=== PATIENT | female | born 1980 | race Caucasian/White ===

== ENCOUNTER 2018-02-22 09:47 | Day surgery (SDC) | payer OTHER ==
[2018-02-19 09:20] VITALS: BMI 66.7
[~2018-02-22 09:47] MED LIST: LACTATED RINGERS 1,000 ML IV SCH
[2018-02-22 10:34] VITALS: RESP 18; TEMP 98.7
[2018-02-22] MEDS ORDERED: LIDOCAINE 1% 20 ML VIAL (10MG/ML) FOR IV START INTRADERMA ONE (10:41)
[2018-02-22] MEDS ORDERED: PROPOFOL 10 MG/ML 20 ML VIAL IV ONE (11:41)
[2018-02-22] MEDS ORDERED: fentaNYL (PF) 50 MCG/ML 2 ML AMP ONE (11:41)
[2018-02-22] MEDS ORDERED: LIDOCAINE 1% INJ 10MG/ML (20 ML MDV) ONE (11:41)
--- NOTE | 2018-02-22 12:13 | P.PCN ---
Date of Procedure: 02/22/18 Procedure(s) Performed: Procedures: 1. Esophagogastroduodenoscopy and biopsy. 2. Colonoscopy and biopsy. Preoperative diagnosis: Chronic diarrhea. Postoperative diagnosis: 1. Mild gastritis. 2. Normal colon and terminal ileum. 3. Biopsies obtained from the duodenum, antrum, esophagus, terminal ileum and right colon. Preparation: HalfLytely prep. Sedation: Was provided by anesthesia. Brief clinical history: The patient is a 38-year-old female who is scheduled for this evaluation because of chronic diarrhea of around 2 months duration. Intermittent rectal bleeding. This evaluation is to assess for inflammatory bowel disease, celiac disease or other pathology. Procedure: With the patient on her left lateral decubitus position and after informed consent and adequate sedation, I passed the Olympus-GIF 10/07/1989 video upper endoscope through the cricopharyngeus down the esophagus. GE junction was around 39-40 cm from the incisors. No definite hiatal hernia or any obvious esophagitis or complicated reflux disease. The endoscope was then passed into the stomach which was insufflated with air and inspected in detail including the retroflex view in the cardia. There was some mottling and erythema in the antrum but no ulcers or erosions. Pyloric channel, duodenal bulb, post bulbar area and descending duodenum appeared within normal limits. Because of her diarrhea, I obtained biopsies from the duodenum in addition to biopsies from the antrum and esophagus then the endoscope was withdrawn and I proceeded to perform the colonoscopy. Perianal area did not show any fissures or fistulas. There were no masses felt on digital rectal examination. The Olympus CFH 190L video colonoscope was then inserted in the rectum in the usual fashion and advanced to the cecum. I intubated the ileocecal valve and examined the terminal ileum. Terminal ileum and colon appeared healthy with no edema, erythema, friability, ulceration, exudation or spontaneous bleeding. No polyps or tumors were seen or any obvious diverticular disease or other pathology. I obtained biopsies from the terminal ileum and right colon. The endoscope was then retroflexed in the rectum before it was withdrawn. Low-grade internal hemorrhoids were noted with no obvious bleeding. The patient tolerated the procedure well. Plan: The patient was reassured. Will await biopsy results and make further plans based on her course and biopsy results.
[2018-02-22 12:25] VITALS: BP 108/62; PULSE 63
== END 2018-02-22 12:48 | disposition home or self-care (01) ==
LOC: ORWHC2ENDO 09:47
DX: K29.70 Gastritis, unspecified, without bleeding (principal); K64.8 Other hemorrhoids; Z88.5 Allergy status to narcotic agent; F17.210 Nicotine dependence, cigarettes, uncomplicated
CPT/HCPCS: 81025; 88305; 45380; 43239; J2001; J3010; J2704

== ENCOUNTER → 2018-07-15 | Outpatient (CLI) | payer OTHER ==
--- NOTE | 2018-07-15 15:23 | US ---
EXAMINATION TYPE: Transabdominal DATE OF EXAM: 07/15/2018 3:07 PM COMPARISON: US June 06, 2018 CLINICAL HISTORY: Z36 confirm dates. EXAM PERFORMED: Transabdominal (TA) EXAM MEASUREMENTS: GESTATIONAL AGE / DATING Physician Established: Not yet established Dates by LMP: 04/29/2018 (11 weeks/0 days) EDC: 02/03/2019 Dates by First Scan: No IUP seen on prior Dates by Current Scan for: (11 weeks/3 days) EDC: 01/31/2019 MATERNAL ANATOMY Uterus: 14.3 x 6.8 x 9.3 cm Right Ovary: 3.3 x 4.2 x 1.8 cm Left Ovary: 3.4 x 2.2 x 2.2 cm Post CDS / Adnexa: wnl Presence of free fluid: none GESTATION / SURVEY CRL: 4.6 cm (11 weeks/3 days) Yolk Sac (normal less than 6mm): not seen Heart Rate: 155 bpm Rhythm: normal IUP: Viable IUP Nuchal Translucency 10-14wks (normal less than 3mm): 1.2 mm Date of LMP: 04/29/2018 Single live intrauterine gestation is now present as gestational sac and pole are seen. Yolk sa c is not identified. No free fluid in pelvic cul-de-sac. Both ovaries are seen. No suspicious extra ovarian adnexal masses are noted. IMPRESSION: Single live intrauterine gestation is now confirmed, mean crown-rump length is 4.6 cm corresponding t o 11 week 3 day old fetus.
== END | disposition home or self-care (01) ==
LOC: RADUSWWP 14:46
PROVIDERS: ATTEND Obstetrics & Gynecology
DX: Z36.9 Encounter for antenatal screening, unspecified (principal); Z3A.11 11 weeks gestation of pregnancy
CPT/HCPCS: 76801; 76813

== ENCOUNTER 2018-10-14 23:20 | Outpatient (CLI) | payer OTHER ==
[2018-10-14 23:54] VITALS: BP 133/74; PULSE 86; RESP 16; TEMP 97.1
[2018-10-15 00:05] LABS: Amorphous Sediment,Urine Rare /hpf; Appearance,Urine Turbid (Clear); Bilirubin,Urine Negative (Negative); Blood,Urine Negative (Negative); Color,Urine Yellow; Glucose,Urine (UA) Negative (Negative); Ketones,Urine Negative (Negative); Leukocyte Esterase,Urine Trace (Negative); Mucus,Urine Rare /hpf; Nitrite,Urine Negative (Negative); Protein,Urine Trace (Negative); RBC,Urine 6 /hpf (0-5); Specific Gravity,Urine 1.022 (1.001-1.035); Squamous Epithelial Cell,Urine 3 /hpf (0-4); Urobilinogen,Urine <2.0 mg/dL (<2.0)
--- NOTE | 2018-10-15 06:15 | P.MSEPDOC ---
Presenting Problems - Arrival Data Date of Arrival on Unit: 10/14/18 Time of Arrival on Unit: 23:20 Mode of Transport: Ambulatory - Complaint OB-Reason for Admission/Chief Complaint: Pain Comment: rates cramping pain a 1. Medical History - Information : 5 Para: 1 Term: 1 : 0 Abortions: Spontaneous or Elective: 3 Number of Living Children: 1 - Gestational Age Gestational Age by KINGSTON (wks/days): 24 Weeks and 4 Days Review of Systems - Review of Systems Constitutional: No problems Breast: No problems ENT: No problems Cardiovascular: No problems Respiratory: No problems Gastrointestinal: No problems Genitourinary: No problems Musculoskeletal: No problems Neurological: No problems Skin: No problems Vital Signs - Temperature Temperature: 97.1 F Temperature Source: Temporal Artery Scan - Pulse Right Sitting Brachial Pulse Rate: 86 Pulse Assessment Method: Automatic Cuff - Respirations Respiratory Rate: 16 Oxygen Delivery Method: Room Air O2 Sat by Pulse Oximetry: 99 - Blood Pressure Right Arm Sitting Blood Pressure: 133/74 Blood Pressure Mean: 93 Blood Pressure Source: Automatic Cuff Medical Screen Scoring (Pre) - Cervical Exam Dilation: 0 cm = 0 Membranes: Intact - Uterine Contractions Frequency: N/A Duration: N/A Intensity: N/A - Maternal Vital Signs Maternal Temperature: N/A Maternal Blood Pressure: N/A Signs of Preeclampsia: N/A Maternal Respirations: N/A - Maternal Trauma Maternal Trauma: N/A - Assessment - Baby A Baseline FHR: 155 Heart Rate - NICHD Category: Category I (Normal) = 0 - Total Score - Baby A Total Score - Baby A: 0 - Total Score - Baby B Total Score - Baby B: 0 - Total Score - Baby C Total Score - Baby C: 0 - Level of Risk - Baby A Level of Risk - Baby A: Low (0-5) - Level of Risk - Baby B Level of Risk - Baby B: Low (0-5) - Level of Risk - Baby C Level of Risk - Baby C: Low (0-5) Physician Notification (Pre) - Physician Notified Physician Notified Date: 10/14/18 Physician Notified Time: 23:44 Physician/Practitioner Notifed:: Dr Jones New Order Received: Yes (send ua and check cervix) Disposition - Disposition Discharge Date: 10/15/18 Discharge Time: 00:20 I agree with the RN Medical Screening Exam: Yes Risk & Benefit of care provided described in d/c instruction: Yes Diagnosis: PELVIC AND PERINEAL PAIN
== END 2018-10-15 00:20 | disposition home or self-care (01) ==
LOC: FBPOP 23:20
PROVIDERS: ATTEND Obstetrics & Gynecology
DX: O99.89 Other specified diseases and conditions complicating pregnancy, childbirth and the puerperium (principal); R10.2 Pelvic and perineal pain; Z3A.24 24 weeks gestation of pregnancy
CPT/HCPCS: 81001; G0463; 99213

== ENCOUNTER 2018-11-23 10:54 | Outpatient (CLI) | payer OTHER ==
[2018-11-23 11:49] VITALS: PULSE 102; RESP 17; TEMP 98.4
[2018-11-23 11:52] LABS: Appearance,Urine Clear (Clear); Bilirubin,Urine Negative (Negative); Blood,Urine Negative (Negative); Color,Urine Light Yellow; Glucose,Urine (UA) Trace (Negative); Ketones,Urine Negative (Negative); Leukocyte Esterase,Urine Negative (Negative); Nitrite,Urine Negative (Negative); PH, Urine 7.5 (5.0-8.0); Protein,Urine Negative (Negative); Specific Gravity,Urine 1.007 (1.001-1.035); Urobilinogen,Urine <2.0 mg/dL (<2.0)
[2018-11-23 12:07] LABS: Basophils % (A) 0 %; Eosinophils # (A) 0.1 k/uL (0-0.7); Eosinophils % (A) 1 %; HCT 36.9 % (34.0-46.0); HGB 12.2 gm/dL (11.4-16.0); Lymphocytes # (A) 1.7 k/uL (1.0-4.8); Lymphocytes % (A) 14 %; MCH 29.3 pg (25.0-35.0); MCV 88.7 fL (80.0-100.0); Mean Platelet Volume 7.5; Monocytes # (A) 0.5 k/uL (0-1.0); Monocytes % (A) 4 %; Neutrophils % (A) 80 %; Platelet Count 251 k/uL (150-450); RBC 4.16 m/uL (3.80-5.40); RDW 13.7 % (11.5-15.5); WBC 12.5 k/uL (3.8-10.6)
[2018-11-23 12:16] LABS: ALT 12 U/L (9-52); AST 17 U/L (14-36); African American GFR (CKD) >90 (>60 ml/min/1.73 sqM); Blood Urea Nitrogen 7 mg/dL (7-17); LDH 287 U/L (313-618); Uric Acid 4.7 mg/dL (3.7-7.4)
[2018-11-23 14:09] VITALS: BP 111/60
--- NOTE | 2018-11-24 23:06 | P.MSEPDOC ---
Presenting Problems - Arrival Data Date of Arrival on Unit: 11/23/18 Time of Arrival on Unit: 10:54 Mode of Transport: Ambulatory - Complaint OB-Reason for Admission/Chief Complaint: Decreased Movement, Pain Comment: pt here with c/o of right abd pain since last night and decreased . movement since abd pain started, pt reports constant tightening in her abd but denies. contractions/cramping/lof/vb, abd soft and non tender to touch, able to palpate parts in right upper abd where pt reports pain, pt states she has had a headache for the last 2 days but denies issues with bps Medical History - Information : 4 Para: 1 Term: 1 : 0 Abortions: Spontaneous or Elective: 2 Number of Living Children: 1 - Gestational Age Gestational Age by KINGSTON (wks/days): 29 Weeks and 5 Days Review of Systems - Review of Systems Constitutional: No problems Breast: No problems ENT: No problems Cardiovascular: No problems Respiratory: No problems Gastrointestinal: No problems Genitourinary: No problems Musculoskeletal: No problems Neurological: No problems Skin: No problems Vital Signs - Temperature Temperature: 98.4 F Temperature Source: Oral - Pulse Right Brachial Pulse Rate: 102 Pulse Assessment Method: Automatic Cuff - Respirations Respiratory Rate: 17 Oxygen Delivery Method: Room Air O2 Sat by Pulse Oximetry: 98 - Blood Pressure Right Arm Blood Pressure: 111/60 Blood Pressure Mean: 77 Blood Pressure Source: Automatic Cuff Medical Screen Scoring (Pre) - Cervical Exam Dilation: Exam Deferred Effacement: Exam Deferred Membranes: Intact - Uterine Contractions Frequency: N/A Duration: N/A Intensity: N/A - Maternal Vital Signs Maternal Temperature: N/A Maternal Blood Pressure: N/A Signs of Preeclampsia: N/A Maternal Respirations: N/A - Maternal Trauma Maternal Trauma: N/A - Assessment - Baby A Baseline FHR: 150 Heart Rate - NICHD Category: Category I (Normal) = 0 NST: Reactive Position: N/A Station: N/A - Total Score - Baby A Total Score - Baby A: 0 - Total Score - Baby B Total Score - Baby B: 0 - Total Score - Baby C Total Score - Baby C: 0 - Level of Risk - Baby A Level of Risk - Baby A: Low (0-5) - Level of Risk - Baby B Level of Risk - Baby B: Low (0-5) - Level of Risk - Baby C Level of Risk - Baby C: Low (0-5) - Pain Assessment Pain Location and Character: Right, Abdomen Pain Scale Used: Numeric (1 - 10) Pain Intensity: 5 Pain Management Goal: 2 Pain Description: *Acute, Sharp, Tightness Pain Radiation Location: none Pain Frequency: Occasional Pain Duration: 14 Pain Duration Units: Hours Pain Behavior: None Exhibited Pain Aggravating Factors: Position Physician Notification (Pre) - Physician Notified Physician Notified Date: 11/23/18 Physician Notified Time: 11:29 Physician/Practitioner Notifed:: Dr Jones Spoke With: Dr Karen Morris Order Received: Yes - Notification Comment Comment: order given to cont monitoring bps and to send lab work to r/o pre eclampsia Medical Screen Scoring (Post) - Cervical Exam Dilation: Exam Deferred Effacement: Exam Deferred Membranes: Intact - Uterine Contractions Frequency: N/A Duration: N/A Intensity: N/A - Maternal Vital Signs Maternal Temperature: N/A Maternal Blood Pressure: N/A Signs of Preeclampsia: N/A Maternal Respirations: N/A - Maternal Trauma Maternal Trauma: N/A - Assessment - Baby A Heart Rate: 150 Heart Rate - NICHD Category: Category I (Normal) = 0 NST: Reactive Position: N/A Station: N/A - Total Score Total Score - Baby A: 0 Total Score - Baby B: 0 Total Score - Baby C: 0 - Post Treatment Level of Risk Post Treatment Level of Risk - Baby A: Low (0-5) Post Treatment Level of Risk - Baby B: N/A Post Treatment Level of Risk - Baby C: N/A Physician Notification (Post) - Physician Notified Physician Notified Date: 11/23/18 Physician Notified Time: 12:35 Physician/Practitioner Notified:: Dr Jones Spoke With: Dr Jones New Order Received: Yes (dc home) Disposition - Disposition OB Disposition: Discharge to home, Written follow up instructions reviewed Discharge Date: 11/23/18 Discharge Time: 12:45 I agree with the RN Medical Screening Exam: Yes Risk & Benefit of care provided described in d/c instruction: Yes Diagnosis: FALSE LABOR BEFORE 37 COMPLETED WEEKS OF GEST, THIRD TRI
== END 2018-11-23 12:45 | disposition home or self-care (01) ==
LOC: FBPOP 10:54
PROVIDERS: ATTEND Obstetrics & Gynecology
DX: O47.03 False labor before 37 completed weeks of gestation, third trimester (principal); Z3A.29 29 weeks gestation of pregnancy
CPT/HCPCS: 59025; 82570; 84156; 82565; 83615; 84450; 84460; 84520; 84550; 85025; 81003; G0463; 99213

== ENCOUNTER 2018-12-27 22:55 | Outpatient (CLI) | payer OTHER ==
[2018-12-28 00:16] VITALS: BP 116/65; PULSE 85; RESP 16; TEMP 99.1
--- NOTE | 2018-12-29 21:21 | P.MSEPDOC ---
Presenting Problems - Arrival Data Date of Arrival on Unit: 12/28/18 Time of Arrival on Unit: 22:55 Mode of Transport: Ambulatory - Complaint OB-Reason for Admission/Chief Complaint: Rule Out SROM, Decreased Movement, Elevated Blood Pressure Comment: pt presents to triage with complaints of not feeling baby move the last few. hours. states attempted kick counts for 2 hours without feeling any move ment. States is. high risk due to AMA and 2 ves umbilical cord. upon further question pt states she had a. gush of fluid 24 hours ago and worries her water may be broke. disccused plan for nst. and amnisure test. Pt states she gets bi weekly nsts and weekly Biophysical profiles Medical History - Information : 5 Para: 1 Term: 1 : 0 Abortions: Spontaneous or Elective: 3 Number of Living Children: 1 - Gestational Age Gestational Age by KINGSTON (wks/days): 34 Weeks and 5 Days - History Comment: pt states prior delivery was vaginal Induced for Preeclampsia and baby had triple nuchal cord. First 3 pregnancies were miscarriages. Progesterone was used for last . pt on Baby ASA at this time Review of Systems - Review of Systems Constitutional: No problems Breast: No problems ENT: No problems Cardiovascular: No problems Respiratory: No problems Gastrointestinal: No problems Genitourinary: No problems Musculoskeletal: No problems Neurological: No problems Skin: No problems Vital Signs - Temperature Temperature: 99.1 F Temperature Source: Oral - Pulse Right Pulse Rate: 85 Pulse Assessment Method: Automatic Cuff - Respirations Respiratory Rate: 16 Oxygen Delivery Method: Room Air O2 Sat by Pulse Oximetry: 98 - Blood Pressure Right Arm Blood Pressure: 116/65 Blood Pressure Mean: 82 Blood Pressure Source: Automatic Cuff Medical Screen Scoring (Pre) - Cervical Exam Dilation: Exam Deferred Effacement: Exam Deferred - Uterine Contractions Frequency: N/A Duration: N/A Intensity: N/A - Maternal Vital Signs Maternal Temperature: N/A Maternal Blood Pressure: N/A Signs of Preeclampsia: N/A Maternal Respirations: N/A - Maternal Trauma Maternal Trauma: N/A - Assessment - Baby A Baseline FHR: 145 Heart Rate - NICHD Category: Category I (Normal) = 0 NST: Reactive Position: N/A Station: N/A - Total Score - Baby A Total Score - Baby A: 0 - Total Score - Baby B Total Score - Baby B: 0 - Total Score - Baby C Total Score - Baby C: 0 - Level of Risk - Baby A Level of Risk - Baby A: Low (0-5) - Level of Risk - Baby B Level of Risk - Baby B: Low (0-5) - Level of Risk - Baby C Level of Risk - Baby C: Low (0-5) Physician Notification (Pre) - Physician Notified Physician Notified Date: 12/28/18 Physician Notified Time: 23:44 Physician/Practitioner Notifed:: Dr Garcia Spoke With: Dr Garcia New Order Received: Yes - Notification Comment Comment: Dr. Garcia updated with pts reason for visit of decreased movement and pt. concern her water may have broke. notified NST reactive, Cat 1 fht, Maternal vitals wnl,. pt now feeling movement. order to discharge pt and have pt keep this week's appts. for NSTs and ultrasounds with Dr Jones. pt is to return if further problems with kick. counts or any other concerns Disposition - Disposition OB Disposition: Discharge to home Discharge Date: 12/27/18 Discharge Time: 23:55 I agree with the RN Medical Screening Exam: Yes Risk & Benefit of care provided described in d/c instruction: Yes Diagnosis: DECREASED MOVEMENTS, THIRD TRIMESTER, UNSP
== END 2018-12-27 23:55 | disposition home or self-care (01) ==
LOC: FBPOP 22:55
PROVIDERS: ATTEND Obstetrics & Gynecology
DX: O36.8130 Decreased fetal movements, third trimester, not applicable or unspecified (principal); Z3A.34 34 weeks gestation of pregnancy
CPT/HCPCS: 59025; 84112; G0463; 99213

== ENCOUNTER 2019-01-09 20:15 | Outpatient (CLI) | payer OTHER ==
[2019-01-09 20:39] LABS: Appearance,Urine Clear (Clear); Bacteria,Urine Rare /hpf; Bilirubin,Urine Negative (Negative); Blood,Urine Trace (Negative); Color,Urine Yellow; Glucose,Urine (UA) Negative (Negative); Ketones,Urine Trace (Negative); Leukocyte Esterase,Urine Trace (Negative); Mucus,Urine Few /hpf; Nitrite,Urine Negative (Negative); PH, Urine 6.5 (5.0-8.0); Protein,Urine 1+ (Negative); RBC,Urine 6 /hpf (0-5); Specific Gravity,Urine 1.029 (1.001-1.035); Squamous Epithelial Cell,Urine 4 /hpf (0-4); WBC,Urine 3 /hpf (0-5)
[2019-01-09 20:58] VITALS: BP 137/88; PULSE 101; RESP 16; TEMP 97
--- NOTE | 2019-02-10 05:27 | P.MSEPDOC ---
Presenting Problems - Arrival Data Date of Arrival on Unit: 01/09/19 Time of Arrival on Unit: 20:15 Mode of Transport: Ambulatory - Complaint OB-Reason for Admission/Chief Complaint: Pain Medical History - Information : 5 Para: 1 Term: 1 : 0 Abortions: Spontaneous or Elective: 3 Number of Living Children: 1 - Gestational Age Gestational Age by [place] (wks/days): 36 Weeks and 3 Days - History Comment: 2 Vessel cord. Patient presents with suprapubic pain and pressure that almost made her pass out in the grocery store. Review of Systems - Review of Systems Constitutional: No problems Breast: No problems ENT: No problems Cardiovascular: No problems Respiratory: No problems Gastrointestinal: No problems Genitourinary: No problems Musculoskeletal: No problems Neurological: No problems Skin: No problems Vital Signs - Temperature Temperature: 97.0 F Temperature Source: Temporal Artery Scan - Pulse Pulse Oximetery Pulse Rate: 101 Pulse Assessment Method: Pulse Oximetry - Respirations Respiratory Rate: 16 Oxygen Delivery Method: Room Air O2 Sat by Pulse Oximetry: 98 - Blood Pressure Sitting Blood Pressure: 137/88 Blood Pressure Mean: 104 Blood Pressure Source: Automatic Cuff Medical Screen Scoring (Pre) - Cervical Exam Dilation: 1-3 cm = 1 Effacement: More than 50% = 2 Membranes: Intact - Uterine Contractions Frequency: N/A Duration: N/A Intensity: N/A - Maternal Vital Signs Maternal Temperature: N/A Maternal Blood Pressure: N/A Signs of Preeclampsia: N/A Maternal Respirations: N/A - Maternal Trauma Maternal Trauma: N/A - Assessment - Baby A Baseline FHR: 145 Heart Rate - NICHD Category: Category I (Normal) = 0 NST: Reactive Position: N/A Station: N/A - Total Score - Baby A Total Score - Baby A: 3 - Total Score - Baby B Total Score - Baby B: 3 - Total Score - Baby C Total Score - Baby C: 3 - Level of Risk - Baby A Level of Risk - Baby A: Low (0-5) - Level of Risk - Baby B Level of Risk - Baby B: Low (0-5) - Level of Risk - Baby C Level of Risk - Baby C: Low (0-5) Physician Notification (Pre) - Physician Notified Physician Notified Date: 01/09/19 Physician Notified Time: 20:35 New Order Received: Yes - Notification Comment Comment: Encourage patient to take a warm bath, take tylenol over the counter as directed for pain, and use a heating pad for pain. Call physician with UA results if abnormal. 2047: UA results reported, physician states to encourage patient to increase her water intake at this time and keep regularly scheduled appt with Dr. Jones for 01/11. Disposition - Disposition OB Disposition: Discharge to home, Written follow up instructions reviewed Discharge Date: 01/09/19 Discharge Time: 20:52 I agree with the RN Medical Screening Exam: Yes Risk & Benefit of care provided described in d/c instruction: Yes Diagnosis: FALSE LABOR BEFORE 37 COMPLETED WEEKS OF GEST, THIRD TRI
== END 2019-01-09 20:50 | disposition home or self-care (01) ==
LOC: FBPOP 20:15
PROVIDERS: ATTEND Obstetrics & Gynecology
DX: O47.03 False labor before 37 completed weeks of gestation, third trimester (principal); Z3A.36 36 weeks gestation of pregnancy
CPT/HCPCS: 59025; 81001; G0463; 99213

== ENCOUNTER 2019-01-14 19:54 | Outpatient (CLI) | payer OTHER ==
[2019-01-14 20:45] LABS: Appearance,Urine Cloudy (Clear); Bacteria,Urine Rare /hpf; Bilirubin,Urine Negative (Negative); Blood,Urine Negative (Negative); Color,Urine Yellow; Glucose,Urine (UA) Negative (Negative); Ketones,Urine Negative (Negative); Leukocyte Esterase,Urine Small (Negative); Mucus,Urine Occasional /hpf; Nitrite,Urine Negative (Negative); PH, Urine 6.5 (5.0-8.0); Protein,Urine 1+ (Negative); RBC,Urine 3 /hpf (0-5); Specific Gravity,Urine 1.023 (1.001-1.035); Squamous Epithelial Cell,Urine 16 /hpf (0-4); WBC,Urine 3 /hpf (0-5)
[2019-01-14] MEDS ORDERED: LACTATED RINGERS 1,000 ML IV SCH (21:00)
[2019-01-14 21:09] LABS: Basophils % (A) 0 %; Eosinophils # (A) 0.1 k/uL (0-0.7); Eosinophils % (A) 1 %; HCT 37.5 % (34.0-46.0); HGB 13.1 gm/dL (11.4-16.0); Lymphocytes # (A) 1.7 k/uL (1.0-4.8); Lymphocytes % (A) 16 %; MCHC 34.8 g/dL (31.0-37.0); MCV 89.1 fL (80.0-100.0); Mean Platelet Volume 7.4; Monocytes # (A) 0.4 k/uL (0-1.0); Monocytes % (A) 4 %; Neutrophils # (A) 8.3 k/uL (1.3-7.7); Neutrophils % (A) 77 %; Platelet Count 220 k/uL (150-450); RBC 4.21 m/uL (3.80-5.40); RDW 13.8 % (11.5-15.5); WBC 10.7 k/uL (3.8-10.6)
[2019-01-14 21:16] LABS: ALT 19 U/L (9-52); AST 18 U/L (14-36); African American GFR (CKD) >90 (>60 ml/min/1.73 sqM); Albumin 3.4 g/dL (3.5-5.0); Alkaline Phosphatase 120 U/L (38-126); Anion Gap 10 mmol/L; Blood Urea Nitrogen 10 mg/dL (7-17); Carbon Dioxide 21 mmol/L (22-30); Chloride 105 mmol/L (98-107); Glucose 111 mg/dL (74-99); LDH 328 U/L (313-618); Potassium 3.7 mmol/L (3.5-5.1); Sodium 136 mmol/L (137-145); Total Bilirubin 0.2 mg/dL (0.2-1.3); Total Protein 6.1 g/dL (6.3-8.2); Uric Acid 5.6 mg/dL (3.7-7.4)
[2019-01-15 00:39] VITALS: RESP 18; TEMP 97.2
[2019-01-15 00:46] VITALS: BP 138/77; PULSE 64
--- NOTE | 2019-01-16 07:57 | P.MSEPDOC ---
Presenting Problems - Arrival Data Date of Arrival on Unit: 01/14/19 Time of Arrival on Unit: 19:54 Mode of Transport: Ambulatory - Complaint OB-Reason for Admission/Chief Complaint: Decreased Movement, Headache, Visual Disturbances, Pain Comment: pt presents to triage for cramping and pelvic pressure, decreased movement, headache, n/v, and blurred vision Medical History - Information : 5 Para: 1 Term: 1 : 0 Abortions: Spontaneous or Elective: 3 Number of Living Children: 1 - Gestational Age Gestational Age by KINGSTON (wks/days): 37 Weeks and 2 Days Review of Systems - Review of Systems Constitutional: No problems Breast: No problems ENT: No problems Cardiovascular: No problems Respiratory: No problems Gastrointestinal: No problems Genitourinary: No problems Musculoskeletal: No problems Neurological: No problems Skin: No problems Vital Signs - Temperature Temperature: 97.2 F Temperature Source: Temporal Artery Scan - Pulse Right Brachial Pulse Rate: 64 Pulse Assessment Method: Automatic Cuff - Respirations Respiratory Rate: 18 Oxygen Delivery Method: Room Air - Blood Pressure Right Arm Blood Pressure: 138/77 Blood Pressure Mean: 97 Blood Pressure Source: Automatic Cuff Medical Screen Scoring (Pre) - Cervical Exam Dilation: 1-3 cm = 1 Effacement: More than 50% = 2 Membranes: Intact - Uterine Contractions Frequency: N/A Duration: N/A Intensity: N/A - Maternal Vital Signs Maternal Temperature: N/A Maternal Blood Pressure: N/A Signs of Preeclampsia: Headache = 1, Nausea/Vomiting = 1, Visual Disturbance = 1 Maternal Respirations: N/A - Maternal Trauma Maternal Trauma: N/A - Assessment - Baby A Baseline FHR: 145 Heart Rate - NICHD Category: Category I (Normal) = 0 NST: Non-reactive = 3 Position: N/A Station: N/A - Total Score - Baby A Total Score - Baby A: 9 - Total Score - Baby B Total Score - Baby B: 6 - Total Score - Baby C Total Score - Baby C: 6 - Level of Risk - Baby A Level of Risk - Baby A: Medium (6-9) - Level of Risk - Baby B Level of Risk - Baby B: Medium (6-9) - Level of Risk - Baby C Level of Risk - Baby C: Medium (6-9) Physician Notification (Pre) - Physician Notified Physician Notified Date: 01/14/19 Physician Notified Time: 20:30 New Order Received: Yes - Notification Comment Comment: obtain UA, blood work, will give results when back Medical Screen Scoring (Post) - Cervical Exam Dilation: Exam Deferred Effacement: Exam Deferred Membranes: Intact - Uterine Contractions Frequency: N/A Duration: > 40 seconds = 2 Intensity: N/A - Maternal Vital Signs Maternal Temperature: N/A Maternal Blood Pressure: N/A Signs of Preeclampsia: Headache = 1 Maternal Respirations: N/A - Pain Assessment Pain Location and Character: Head Pain Scale Used: Numeric (1 - 10) Pain Intensity: 5 Pain Description: *Acute, Aching Pain Radiation Location: none Pain Frequency: Constant Pain Duration: 24 Pain Duration Units: Hours Pain Behavior: Vocalization - Maternal Trauma Maternal Trauma: N/A - Assessment - Baby A Heart Rate: 130 Heart Rate - NICHD Category: Category I (Normal) = 0 NST: Reactive Position: N/A Station: N/A - Total Score Total Score - Baby A: 3 Total Score - Baby B: 3 Total Score - Baby C: 3 - Post Treatment Level of Risk Post Treatment Level of Risk - Baby A: Low (0-5) Post Treatment Level of Risk - Baby B: Low (0-5) Post Treatment Level of Risk - Baby C: Low (0-5) Physician Notification (Post) - Physician Notified Physician Notified Date: 01/14/19 Physician Notified Time: 22:20 Physician/Practitioner Notified:: arianna Spoke With: arianna New Order Received: Yes - Notification Comment Comment: labs were done, iv fluids given, accoustic stimulation done, nausea gone, eating crackers, nst reactive, orders to discharge pt home, follow up at next appt, pt has 2 vessel cord, gets nst's 2 times a week, reviewed kick counts and preeclampsia symptoms and when to come in for reevaluation, Disposition - Disposition OB Disposition: Discharge to home, Written follow up instructions reviewed Discharge Date: 01/14/19 Discharge Time: 22:30 I agree with the RN Medical Screening Exam: Yes Risk & Benefit of care provided described in d/c instruction: Yes Diagnosis: RELATED CONDITIONS, UNSPECIFIED, THIRD TRIMESTER
== END 2019-01-14 22:30 | disposition home or self-care (01) ==
LOC: FBPOP 19:54
PROVIDERS: ATTEND Obstetrics & Gynecology
DX: O26.93 Pregnancy related conditions, unspecified, third trimester (principal); Z3A.37 37 weeks gestation of pregnancy
CPT/HCPCS: 59025; 96360; 82570; 80053; 84156; 83615; 84550; 85025; 81001; G0463; 99215

== ENCOUNTER 2019-01-20 10:43 | Inpatient (IN) | payer OTHER ==
[2019-01-20] MEDS ORDERED: OXYTOCIN 10 UNIT/ML 1 ML VIAL IM PRN (10:59)
[2019-01-20] MEDS ORDERED: CARBOPROST TROMETHAMINE 250 MCG/ML 1 ML AMP IM PRN (10:59)
[2019-01-20] MEDS ORDERED: LIDOCAINE 0.5% (PF) 5 MG/ML (50 ML SDV) SQ PRN (10:59)
[2019-01-20] MEDS ORDERED: TERBUTALINE 1 MG/ML VIAL SQ PRN (10:59)
[2019-01-20] MEDS ORDERED: METHYLERGONOVINE 0.2 MG/ML 1 ML AMP IM PRN (10:59)
[2019-01-20] MEDS ORDERED: OXYTOCIN 30 UNITS/500 ML NS 30 UNIT in SALINE 1 500ML.BAG IV SCH (11:00)
[2019-01-20 11:05] VITALS: BMI 33.6
[2019-01-20] MEDS: LACTATED RINGERS 1,000 ML IV SCH ×3 (11:12→15:03)
[2019-01-20 11:37] LABS: Basophils % (A) 0 %; Eosinophils # (A) 0.1 k/uL (0-0.7); Eosinophils % (A) 1 %; HCT 39.6 % (34.0-46.0); HGB 13.4 gm/dL (11.4-16.0); Lymphocytes # (A) 1.7 k/uL (1.0-4.8); Lymphocytes % (A) 17 %; MCH 30.5 pg (25.0-35.0); MCHC 33.8 g/dL (31.0-37.0); MCV 90.3 fL (80.0-100.0); Mean Platelet Volume 7.8; Monocytes # (A) 0.4 k/uL (0-1.0); Monocytes % (A) 4 %; Neutrophils % (A) 78 %; Platelet Count 251 k/uL (150-450); RBC 4.38 m/uL (3.80-5.40); WBC 10.3 k/uL (3.8-10.6)
--- NOTE | 2019-01-20 12:08 | P.HPOB ---
History of Present Illness H&P Date: 01/20/19 Chief Complaint: Variable decelerations on surveillance NST, known 2 vessel cord This patient is a pleasant 38-year-old 5 para 1 female estimated date of confinement 02/03/2019 estimated gestational age 38 weeks who presented to my office this morning for routine surveillance nonstress test secondary to known 2 vessel cord. The office patient had reactive heart tones however had several moderate variable decelerations. I discuss these findings with the roshni ojeda and at this point with a known two-vessel cord I recommended proceed with delivery based on concerning nonstress test. Patient is agreeable to this and proceed with delivery at this time. Patient's care is complicated by two-vessel cord for which she was referred to maternal- medicine. Patient's had a normal cardiac echo. And normal anatomy. Patient does have a history of gestational hypertension and has been on baby aspirin however blood pressures have remained normal this . Patient also is over the age of 33 and had normal genetic testing 46 XY by maternity T 21. Review of Systems Genitourinary: Reports Menstruation: Reports amenorrhea Past Medical History Past Medical History: No Reported History Additional Past Medical History / Comment(s): migraines History of Any Multi-Drug Resistant Organisms: None Reported Past Surgical History: Appendectomy, Cholecystectomy Past Anesthesia/Blood Transfusion Reactions: No Reported Reaction Past Psychological History: Anxiety, Depression Smoking Status: Former smoker Past Alcohol Use History: None Reported Additional Past Alcohol Use History / Comment(s): 1/2 ppd for 10 years. Past Drug Use History: None Reported - Past Family History Sister(s) Family Medical History: Cancer Medications and Allergies Home Medications Medication Instructions Recorded Confirmed Type Aspirin 81 mg PO DAILY 10/14/18 01/20/19 History Pnv No.95/Ferrous Fum/Folic AC 1 tab PO DAILY 10/14/18 01/20/19 History [ Multivitamin Tablet] Allergies Allergy/AdvReac Type Severity Reaction Status Date / Time hydromorphone [From Dilaudid] Allergy Swelling Verified 01/20/19 10:56 Exam Vital Signs Temp Pulse Resp BP Pulse Ox 01/20/19 11:01 97.2 F L 87 14 127/79 96 Intake and Output 01/19/19 01/20/19 01/20/19 22:59 06:59 14:59 Other: Weight 103.419 kg - OBG Physical Exam Abdomen: bowel sounds normal, no diffuse tenderness, no bruit present, no guarding noted, no hepatomegaly, no splenomegaly, no mass Vulva: both: normal Vagina: normal moisture, no discharge Cervix: no lesion (Cervix is 3-4 cm dilated 50% effaced -2 station.), no discharge Results blood work shows she is A+, rubella immune, RPR nonreactive, hepatitis B negative, Glucola was abnormal with a normal three-hour gtt., maternity T 21 was normal 46 XY. cardiac echo was normal as well. Group B strep was negative. Result Diagrams: 01/20/19 11:07 Abnormal Lab Results - Last 24 Hours (Table) 01/20/19 Range/Units 11:07 Neutrophils # 8.0 H (1.3-7.7) k/uL Assessment and Plan Assessment: This is a pleasant 38-year-old 5 para 1 female 38 weeks gestation with known 2 vessel umbilical cord and several moderate variable decelerations in the office on nonstress testing. I discussed options with the patient and plan at this time is to proceed with induction of labor and delivery. All the patient's questions have been answered. (1) 38 weeks gestation of Current Visit: Yes Status: Acute Code(s): Z3A.38 - 38 WEEKS GESTATION OF SNOMED Code(s): 02221822 (2) Two vessel umbilical cord Current Visit: Yes Status: Acute Code(s): Q27.0 - CONGENITAL ABSENCE AND HYPOPLASIA OF UMBILICAL ARTERY SNOMED Code(s): 708398690 (3) Elderly multigravida Current Visit: Yes Status: Acute Code(s): O09.529 - SUPERVISION OF ELDERLY MULTIGRAVIDA, UNSPECIFIED TRIMESTER SNOMED Code(s): 299332947
[2019-01-20] MEDS ORDERED: ROPIVACAINE 5MG/ML 20ML VIAL ONE (13:43)
[2019-01-20] MEDS ORDERED: SODIUM CHLORIDE 0.9% 100 ML BAG ONE (13:43)
[2019-01-20] MEDS ORDERED: fentaNYL (PF) 50 MCG/ML 5 ML AMP ONE (13:43)
[2019-01-20] MEDS ORDERED: WITCH HAZEL 1 EACH MED..PAD TOPICAL PRN (17:05)
[2019-01-20] MEDS ORDERED: HYDROCORTISONE 2.5% RECTAL CREAM 30 GM TUBE RECTAL PRN (17:05)
[2019-01-20] MEDS ORDERED: SIMETHICONE 80 MG CHEWABLE PO PRN (17:05)
[2019-01-20] MEDS ORDERED: OXYTOCIN 20 UNITS/1000 ML NS 1,000 ML IV SCH (17:05)
[2019-01-20] MEDS ORDERED: diphenhydrAMINE 50 MG/ML 1 ML VIAL IVP PRN (17:05)
[2019-01-20] MEDS ORDERED: diphenhydrAMINE 25 MG CAP PO PRN (17:05)
[2019-01-20] MEDS ORDERED: ACETAMINOPHEN TAB 325 MG TAB PO PRN (17:05)
[2019-01-20] MEDS ORDERED: ZOLPIDEM 5 MG TAB PO PRN (17:05)
[2019-01-20] MEDS ORDERED: BISACODYL 10 MG SUPP RECTAL PRN (17:05)
[2019-01-20] MEDS ORDERED: BENZOCAINE/MENTHOL SPRAY 1 GM/SPRAY AEROSOL TOPICAL PRN (17:05)
[2019-01-20] MEDS ORDERED: LANOLIN CREAM 5 GM TUBE TOPICAL PRN (17:05)
--- NOTE | 2019-01-20 17:07 | P.PROBDLV ---
Vaginal Delivery Note - . Vaginal Delivery Note: Normal vaginal delivery viable male infant Apgars 8 and 9 delivery time is 1647 hrs. Please see dictated H&P for intimate details of this patient's admission. Brief summary this is a pleasant 38-year-old 5 para 1 female 38 weeks gestation who is admitted to labor and delivery for repetitive variable decelerations in the office and known 2 vessel umbilical cord. Patient is admitted she is 3-4 cm dilated she has Pitocin induction of labor per protocol. She is artificial rupture membranes for clear fluid. Labor progresses quickly and she does get an epidural for pain control. Patient gets to complete pushes one time pushes the head over the intact perineum. Mouth and nares are bulb suctioned. There is a nuchal cord 1 which is easily reduced. With gentle downward traction we then have deliver the anterior and posterior shoulder and rest this infant's body. This is a vigorous viable male Apgars are 8 and 9 delivery time was 1647 hrs. After delivery of the the umbilical cord is allowed to quit pulsating, it is then doubly clamped and cut. It appears to be 2 vessels. The placenta is then spontaneously delivered intact. Estimated blood loss is 100 mL. Inspection of perineum shows a first-degree laceration which is repaired with 3-0 Vicryl in the usual fashion excellent reapproximation is noted. All counts correct 3. There are no complications. Infant and mother stable delivery room.
[2019-01-20] MEDS: IBUPROFEN 600 MG TAB PO PRN ×2 (17:30→23:50)
[2019-01-20 18:05] VITALS: RESP 16
[2019-01-20] MEDS: SENNOSIDES-DOCUSATE SODIUM 1 EACH TAB PO SCH (19:48)
[2019-01-21] MEDS: IBUPROFEN 600 MG TAB PO PRN ×2 (05:20→15:59)
--- NOTE | 2019-01-21 06:47 | P.PNOBGVD ---
Subjective - Subjective Patient reports: Reports appetite normal, Reports voiding normally, Reports pain well controlled, Reports ambulating normally : doing well Objective - Latest Vital Signs Latest vital signs: Vital Signs Temp Pulse Resp BP Pulse Ox 01/21/19 04:00 98.1 F 78 16 131/77 01/20/19 23:30 98.1 F 79 16 141/78 01/20/19 19:04 74 16 125/78 01/20/19 18:34 97.2 F L 64 16 134/86 01/20/19 18:04 65 16 133/79 01/20/19 17:49 66 16 129/73 01/20/19 17:34 67 16 135/83 01/20/19 17:19 64 16 133/84 01/20/19 17:04 68 16 128/77 01/20/19 11:01 97.2 F L 87 14 127/79 96 Intake and Output 01/20/19 01/20/19 01/21/19 14:59 22:59 06:59 Intake Total 1000 499.5 Output Total 150 Balance 1000 349.5 Intake: Intake, IV Titration 1000 499.5 Amount Lactated Ringers 1,000 ml 1000 @ 125 mls/hr IV .Q8H BENJAMIN Rx#:[id number] Oxytocin 20 Units/1000 ml 499.5 Ns 1,000 ml @ Per Protocol IV .Q0M BENJAMIN Rx#: [id number] Output: Estimated Blood Loss 150 Other: # Voids 1 1 # Bowel Movements 1 Weight 103.419 kg - Exam Lungs: bilateral: normal Chest: Normal S1, Normal S2 Extremities: Present: normal Abdomen: Present: normal appearance, soft Uterus: Present: normal, firm - Labs Labs: Abnormal Lab Results - Last 24 Hours (Table) 01/20/19 Range/Units 11:07 Neutrophils # 8.0 H (1.3-7.7) k/uL Assessment and Plan Assessment: Post day #1. Patient is resting without complaints and wishes to go home. Vital signs are stable and she is afebrile. Uterus is firm nontender she's having normal lochia. My impression this is a normal course. Plan is to continue routine care and discharge home later today. (1) 38 weeks gestation of Current Visit: Yes Status: Acute Code(s): Z3A.38 - 38 WEEKS GESTATION OF SNOMED Code(s): 26051652 (2) Two vessel umbilical cord Current Visit: Yes Status: Acute Code(s): Q27.0 - CONGENITAL ABSENCE AND HYPOPLASIA OF UMBILICAL ARTERY SNOMED Code(s): 869318731 (3) Elderly multigravida Current Visit: Yes Status: Acute Code(s): O09.529 - SUPERVISION OF ELDERLY MULTIGRAVIDA, UNSPECIFIED TRIMESTER SNOMED Code(s): 781387039
--- NOTE | 2019-01-21 06:51 | P.DS ---
Providers Date of admission: 01/20/19 10:43 Expected date of discharge: 01/21/19 Attending physician: Alex Jones Primary care physician: Stated None - Discharge Diagnosis(es) (1) 38 weeks gestation of Current Visit: Yes Status: Acute (2) Two vessel umbilical cord Current Visit: Yes Status: Acute (3) Elderly multigravida Current Visit: Yes Status: Acute Hospital Course: Please see dictated H&P for intimate details of this patient's admission. Brief summary this pleasant 38-year-old 5 para 1 female 38 weeks gestation admitted to labor and delivery for induction due to variable decelerations noted on a nonstress test in the office and a two-vessel umbilical cord. Patient is admitted she is uncomplicated induction of labor was on have a vaginal delivery viable male . Please see dictated delivery note. day 1 patient without complaints wishes to go home today so stable for discharge home follow up with me in 6 weeks. Procedures: Induction of labor and normal vaginal delivery Patient Condition at Discharge: Good Plan - Discharge Summary New Discharge Prescriptions: New Ibuprofen [Motrin] 600 mg PO Q6HR PRN #30 tab PRN Reason: Mild Pain Or Fever >= 100.5 No Action Aspirin 81 mg PO DAILY Pnv No.95/Ferrous Fum/Folic AC [ Multivitamin Tablet] 1 tab PO DAILY Discharge Medication List Aspirin 81 mg PO DAILY 10/14/18 [History] Pnv No.95/Ferrous Fum/Folic AC [ Multivitamin Tablet] 1 tab PO DAILY 10/14/18 [History] Ibuprofen [Motrin] 600 mg PO Q6HR PRN #30 tab 01/21/19 [Rx] Follow up Appointment(s)/Referral(s): Alex Jones MD [STAFF PHYSICIAN] - 6 Weeks Patient Instructions/Handouts: (DC) Activity/Diet/Wound Care/Special Instructions: No intercourse or anything per vagina for 6 weeks. Please call if any fever, chills, excessive vaginal bleeding, and/or abdominal pain. Discharge Disposition: HOME SELF-CARE
[2019-01-21] MEDS: SENNOSIDES-DOCUSATE SODIUM 1 EACH TAB PO SCH (12:13)
[2019-01-21 16:55] VITALS: BP 131/74; PULSE 64; TEMP 98.3
== END 2019-01-21 17:45 | disposition home or self-care (01) | DRG 806 ==
LOC: 4FBP 10:43
PROVIDERS: ADMIT Obstetrics & Gynecology; ATTEND Obstetrics & Gynecology
PROC: 10E0XZZ Delivery of Products of Conception, External Approach (ICD-10-PCS; principal; 2019-01-20)
PROC: 0HQ9XZZ Repair Perineum Skin, External Approach (ICD-10-PCS; 2019-01-20)
PROC: 10907ZC Drainage of Amniotic Fluid, Therapeutic from Products of Conception, Via Natural or Artificial Opening (ICD-10-PCS; 2019-01-20)
PROC: 3E033VJ Introduction of Other Hormone into Peripheral Vein, Percutaneous Approach (ICD-10-PCS; 2019-01-20)
DX: O76 Abnormality in fetal heart rate and rhythm complicating labor and delivery (principal); O99.354 Diseases of the nervous system complicating childbirth; Z37.0 Single live birth; O99.344 Other mental disorders complicating childbirth; O69.81X0 Labor and delivery complicated by cord around neck, without compression, not applicable or unspecified; F41.9 Anxiety disorder, unspecified; F32.9 Major depressive disorder, single episode, unspecified; O70.0 First degree perineal laceration during delivery; O69.89X0 Labor and delivery complicated by other cord complications, not applicable or unspecified; G43.909 Migraine, unspecified, not intractable, without status migrainosus; Z3A.38 38 weeks gestation of pregnancy; Z79.82 Long term (current) use of aspirin; Z87.891 Personal history of nicotine dependence; Z88.5 Allergy status to narcotic agent; Z90.49 Acquired absence of other specified parts of digestive tract
CPT/HCPCS: 85025; 86850; 86900; 86901; 88307

== ENCOUNTER 2019-10-31 07:34 | Emergency (ER) | payer OTHER ==
[2019-10-31 07:39] VITALS: BP 145/93; PULSE 89; RESP 17; TEMP 98.1
[2019-10-31] MEDS ORDERED: diphenhydrAMINE 50 MG CAP PO STA (08:02)
--- NOTE | 2019-10-31 08:04 | ED ---
General Adult HPI - General Chief complaint: ENT Stated complaint: Throat Pain Time Seen by Provider: 10/31/19 07:41 Source: patient, RN notes reviewed Mode of arrival: ambulatory Limitations: no limitations - History of Present Illness Initial comments: 39-year-old female presents to the emergency department for a chief complaint of pharyngitis. Patient reports that she feels like there is something stuck in her throat. States that when she looked in the in the mere she saw that her uvula was enlarged. States that is what is causing her to feel a sensation. She denies any difficulty breathing. Denies any difficulty swallowing. Denies fevers or chills. Denies any severe pain in her throat.Patient has no other complaints at this time including shortness of breath, chest pain, abdominal pain, nausea or vomiting, headache, or visual changes. - Related Data Home Medications Medication Instructions Recorded Confirmed Aspirin 81 mg PO DAILY 10/14/18 01/20/19 Pnv No.95/Ferrous Fum/Folic AC 1 tab PO DAILY 10/14/18 01/20/19 [ Multivitamin Tablet] Previous Rx's Medication Instructions Recorded Ibuprofen [Motrin] 600 mg PO Q6HR PRN #30 tab 01/21/19 Amoxicillin 875 mg PO Q12HR #20 tablet 10/31/19 diphenhydrAMINE HCL [Benadryl] 25 mg PO Q6H PRN #20 tab 10/31/19 predniSONE 50 mg PO DAILY #5 tablet 10/31/19 Allergies Allergy/AdvReac Type Severity Reaction Status Date / Time hydromorphone [From Dilaudid] Allergy Swelling Verified 01/20/19 10:56 Review of Systems ROS Statement: Those systems with pertinent positive or pertinent negative responses have been documented in the HPI. ROS Other: All systems not noted in ROS Statement are negative. Past Medical History Past Medical History: No Reported History Additional Past Medical History / Comment(s): migraines History of Any Multi-Drug Resistant Organisms: None Reported Past Surgical History: Appendectomy, Cholecystectomy Past Anesthesia/Blood Transfusion Reactions: No Reported Reaction Past Psychological History: Anxiety, Depression Smoking Status: Current every day smoker Past Alcohol Use History: None Reported Past Drug Use History: None Reported - Past Family History Sister(s) Family Medical History: Cancer General Exam Limitations: no limitations General appearance: alert, in no apparent distress Head exam: Present: atraumatic, normocephalic, normal inspection Eye exam: Present: normal appearance, PERRL, EOMI. Absent: scleral icterus, conjunctival injection, periorbital swelling ENT exam: Present: normal exam, mucous membranes moist, TM's normal bilaterally, normal external ear exam. Absent: normal oropharynx (Uvula moderately enlarged. However oropharynx is patent.) Neck exam: Present: normal inspection, full ROM. Absent: tenderness, meningismus, lymphadenopathy Respiratory exam: Present: normal lung sounds bilaterally. Absent: respiratory distress, wheezes, rales, rhonchi, stridor Cardiovascular Exam: Present: regular rate, normal rhythm, normal heart sounds. Absent: systolic murmur, diastolic murmur, rubs, gallop, clicks GI/Abdominal exam: Present: soft, normal bowel sounds. Absent: distended, tenderness, guarding, rebound, rigid Neurological exam: Present: alert Course Vital Signs 10/31/19 07:37 Temperature 98.1 F Pulse Rate 89 Respiratory 17 Rate Blood Pressure 145/93 O2 Sat by Pulse 100 Oximetry Medical Decision Making - Medical Decision Making Patient is stable. No respiratory distress. No drooling. Patient will be treated with steroids and antibiotics. Will follow-up with primary care and return for any worsening symptoms. Disposition Clinical Impression: Uvulitis Disposition: HOME SELF-CARE Condition: Good Instructions (If sedation given, give patient instructions): Uvulitis (ED) Additional Instructions: Please take medications as directed. Follow-up with your doctor. If you develop any difficulty swallowing or breathing return immediately to the emergency room. Prescriptions: Amoxicillin 875 mg PO Q12HR #20 tablet diphenhydrAMINE HCL [Benadryl] 25 mg PO Q6H PRN #20 tab PRN Reason: pharyngitis predniSONE 50 mg PO DAILY #5 tablet Is patient prescribed a controlled substance at d/c from ED?: No Referrals: Kendal Tamayo MD [Primary Care Provider] - 1-2 days Time of Disposition: 08:03
== END 2019-10-31 08:11 | disposition home or self-care (01) ==
LOC: EC 07:34
DX: K12.2 Cellulitis and abscess of mouth (principal); F17.200 Nicotine dependence, unspecified, uncomplicated; Z88.5 Allergy status to narcotic agent; Z90.49 Acquired absence of other specified parts of digestive tract
CPT/HCPCS: 99283

== ENCOUNTER 2019-11-24 06:32 | Day surgery (SDC) | payer OTHER ==
[2019-11-23 09:34] VITALS: BMI 29.8
--- NOTE | 2019-11-23 12:58 | P.HPOB ---
History of Present Illness H&P Date: 11/23/19 Chief Complaint: Family planning, requesting tubal cauterization. This patient is a pleasant 39 yr female who presented to my office requesting permanent sterilization. Her partner will not get a vasectomy and I have discussed various options for control and this is the method she has chosen. Past Medical History Past Medical History: No Reported History Additional Past Medical History / Comment(s): migraines History of Any Multi-Drug Resistant Organisms: None Reported Past Surgical History: Appendectomy, Cholecystectomy Past Anesthesia/Blood Transfusion Reactions: No Reported Reaction Additional Past Anesthesia/Blood Transfusion Reaction / Comment(s): no hx blood transfusion Past Psychological History: No Psychological Hx Reported Smoking Status: Current every day smoker Past Alcohol Use History: None Reported Past Drug Use History: None Reported - Past Family History Sister(s) Family Medical History: Cancer Medications and Allergies Home Medications Medication Instructions Recorded Confirmed Type No Known Home Medications 11/23/19 11/23/19 History Allergies Allergy/AdvReac Type Severity Reaction Status Date / Time hydromorphone [From Dilaudid] Allergy Swelling Verified 11/23/19 09:29 Exam Intake and Output 11/22/19 11/23/19 11/23/19 22:59 06:59 14:59 Other: Weight 91.626 kg - OBG Physical Exam Abdomen: bowel sounds normal, no diffuse tenderness, no bruit present, no guarding noted, no hepatomegaly, no splenomegaly, no mass Vulva: both: normal Vagina: normal moisture, no discharge Cervix: no lesion, no discharge Uterus: normal size Assessment and Plan Assessment: This is a pleasant 39 yr female who presents requesting permanent sterilization. Plan is laparoscopic bilateral fallopion tube sterilization. She understands that this procedure is considered permanent, however there is a failure rate of ~07/999 procedures done. She understands that if she ever becomes that she has a 50% chance of a tubal or ectopic requiring more surgery. I also discussed the risks of this surgery: infection, bleeding, possible injury to bowel/bladder/vessels and/or other organs. She is at increased risk due to 2 previous laparoscopies. We discussed that this proc edure is elective and alternatives exist. All of her questions were answered and a written consent obtained. (1) Family planning Status: Acute Code(s): Z30.09 - ENCOUNTER FOR OTH GENERAL CNSL AND ADVICE ON CONTRACEPTION SNOMED Code(s): 984652979
[~2019-11-24 06:32] MED LIST changes: +DEXAMETHASONE SOD PHOSPHATE 10 MG/ML 1 ML VIAL IV ONE; +ONDANSETRON 4 MG/2 ML VIAL IVP ONE; +Pre Op ABX Message 1 EACH MISC MISCELLANE ONE; +fentaNYL (PF) 50 MCG/ML 2 ML AMP IV PRN
[2019-11-24 06:49] VITALS: RESP 16
[2019-11-24] MEDS ORDERED: LIDOCAINE 1% (10MG/ML) FOR IV START INTRADERMA ONE (06:58)
[2019-11-24] MEDS ORDERED: PROPOFOL 10 MG/ML 20 ML VIAL IV ONE (07:21)
[2019-11-24] MEDS ORDERED: SUCCINYLCHOLINE CHLORIDE 100 MG/5 ML SYR IV ONE (07:21)
[2019-11-24] MEDS ORDERED: LIDOCAINE 1% INJ 10MG/ML (20 ML MDV) ONE (07:21)
[2019-11-24] MEDS ORDERED: MIDAZOLAM 2 MG/2 ML VIAL ONE (07:21)
[2019-11-24] MEDS ORDERED: KETOROLAC 15 MG/ML 1 ML VIAL ONE (07:21)
[2019-11-24] MEDS ORDERED: fentaNYL (PF) 50 MCG/ML 2 ML AMP ONE (07:21)
[2019-11-24] MEDS ORDERED: BUPIVACAINE (PF) 0.5% 30 ML VIAL SQ ONE (07:22)
--- NOTE | 2019-11-24 08:13 | P.OP ---
Date of Procedure: 11/24/19 Preoperative Diagnosis: Multi parity desires permanent sterilization Postoperative Diagnosis: Same Procedure(s) Performed: Laparoscopic bilateral fallopian tubal cauterization Anesthesia: KIMBERLEYA Surgeon: Alex Jones Estimated Blood Loss (ml): 5 Pathology: none sent Condition: stable Disposition: PACU Indications for Procedure: Please see dictated H&P for intimate details of this patient's admission. Brief summary this pleasant 39-year-old multiparous patient has requested laparoscopic tubal cauterization for permanent sterilization. Patient I discussed the surgery in detail including the fact that it is permanent, has a failure rate of 5 or less per thousand procedures done. 50% chance of a tubal or an ectopic if she did become . Patient also understand laparoscopic surgery and inherently has risks including risks of infection, bleeding, possibl e injury to bowel, bladder, vessels, and/or other organs. All the patient's questions are answered and a written consent is obtained. Operative Findings: This patient had normal-appearing pelvis and normal-appearing upper abdomen grossly. Description of Procedure: This patient is taken to the operating room where she is laid in the supine position. She subsequently undergoes general endotracheal anesthesia without incident. With an adequate level of anesthesia she's placed in dorsal lithotomy position. She has a vaginal perineal prep and drape, abdominal prep and drape. I first good on below placed a speculum into the vagina. The anterior lip of the cervix was grabbed with an Allis clamp. Large acorn cannula is gently placed into the endocervix. This is attached to the Allis clamp. The speculum was removed. The bladder is then drained with a red Busch catheter and this is left in place. Then changed gloves and go up above. Make a 1 cm infraumbilical incision through her previous laparoscopic incision. Through this a 10 mm bladed lists optical trochars placed. With peritoneal placement confirmed I then created pneumoperitoneum a 12 mm of carbon dioxide gas. Patient's placed in Trendelenburg position. Proximally 2 finger breaths above the symphysis pubis; 5 mm incision and through this a 5 mm trochars placed under direct visualization. Blunt probe was then used to explore the pelvis and upper abdomen. The pelvis appears normal. Using bipolar cautery then grasped the left fallopian tube approximately 4 cm from the cornual insertion. A 2 cm segment of tube was then completely cauterized as demarcated by the volt meter a similar technique is done on the right side with similar results. With this done a final inspection shows excellent hemostasis and the lower trochars removed. The pneumoperitoneum was reduced and the upper trochars removed. Using a 4-0 suture I make interrupted sutures of the incisions to close them. Steri-Strips and sterile dressing is applied. I do infiltrated with half percent Marcaine both incisions for postoperative pain control. I finally go below remove the acorn cannula an Allis clamp. All counts correct 3. There are no complications. Patient is awakened from anesthesia and taken recovery room satisfactory condition.
[2019-11-24 08:18] VITALS: TEMP 98.2
[2019-11-24 08:56] VITALS: BP 120/76
[2019-11-24 09:13] VITALS: PULSE 71
== END 2019-11-24 09:15 | disposition home or self-care (01) ==
LOC: OR 06:32
PROVIDERS: ATTEND Obstetrics & Gynecology
DX: Z30.2 Encounter for sterilization (principal); I25.10 Atherosclerotic heart disease of native coronary artery without angina pectoris; F17.210 Nicotine dependence, cigarettes, uncomplicated; G43.909 Migraine, unspecified, not intractable, without status migrainosus; Z90.49 Acquired absence of other specified parts of digestive tract; Z80.9 Family history of malignant neoplasm, unspecified; Z88.5 Allergy status to narcotic agent
CPT/HCPCS: 81025; 58670; J2250; J1100; J2405; J2001; J3010; J1885; J0330; J2704

== ENCOUNTER 2020-08-08 12:27 | Emergency (ER) | payer OTHER ==
[2020-08-08] MEDS ORDERED: IPRATROPIUM-ALBUTEROL 3 ML NEB INHALATION STA (13:44)
[2020-08-08] MEDS ORDERED: methylPREDNISolone SOD SUCCI 125 MG/2 ML VIAL IV STA (13:45)
--- NOTE | 2020-08-08 13:52 | ED ---
General Adult HPI - General Chief complaint: Chest Pain Stated complaint: Chest Pain/Cough Time Seen by Provider: 08/08/20 13:00 Source: patient, RN notes reviewed, old records reviewed Mode of arrival: wheelchair Limitations: no limitations - History of Present Illness Initial comments: This is a 40-year-old female who presents to the emergency department complaining that for the last 5 days she has had what she believes to be a cold. Patient states she had cold over a month ago and she was doing 5 in about 5 days ago she started having a runny nose and a little sinus tenderness. Patient states last night she started feeling like she has to take a deep breath and when she did she felt there was some tightness around her chest. Patient denies any history of smoking. Patient denies diabetes hypertension high cholesterol. Patient denies any immediate family of any heart attacks. Patient states she noticed when she was in the hot shower it seemed to improve her symptoms. Patient denies any leg swelling or calf tenderness. - Related Data Home Medications Medication Instructions Recorded Confirmed Multivitamins, Thera [Multivitamin 1 tab PO DAILY 08/08/20 08/08/20 (formulary)] Previous Rx's Medication Instructions Recorded Albuterol Inhaler [Ventolin Hfa 2 puff INHALATION RT-QID #2 puff 08/08/20 Inhaler] predniSONE [Deltasone] 40 mg PO DAILY #8 tab 08/08/20 Allergies Allergy/AdvReac Type Severity Reaction Status Date / Time hydromorphone [From Dilaudid] Allergy Swelling Verified 08/08/20 14:11 Review of Systems ROS Statement: Those systems with pertinent positive or pertinent negative responses have been documented in the HPI. ROS Other: All systems not noted in ROS Statement are negative. Past Medical History Past Medical History: No Reported History Additional Past Medical History / Comment(s): migraines, covid in june 2020 History of Any Multi-Drug Resistant Organisms: None Reported Past Surgical History: Appendectomy, Cholecystectomy, Tubal Ligation Past Anesthesia/Blood Transfusion Reactions: No Reported Reaction Past Psychological History: Anxiety, Depression Smoking Status: Former smoker Past Alcohol Use History: None Reported Past Drug Use History: None Reported - Past Family History Sister(s) Family Medical History: Cancer General Exam - General Exam Comments Initial Comments: GENERAL: Patient is well-developed and well-nourished. Patient is nontoxic and well- hydrated and is in mild distress. ENT: Neck is soft and supple. No significant lymphadenopathy is noted. Oropharynx is clear. Moist mucous membranes. Neck has full range of motion without eliciting any pain. EYES: The sclera were anicteric and conjunctiva were pink and moist. Extraocular movements were intact and pupils were equal round and reactive to light. Eyelids were unremarkable. PULMONARY: Patient has expiratory wheezing diffusely CARDIOVASCULAR: There is a regular rate and rhythm without any murmurs gallops or rubs. ABDOMEN: Soft and nontender with normal bowel sounds. SKIN: Skin is clear with no lesions or rashes and otherwise unremarkable. NEUROLOGIC: Patient is alert and oriented x3. Cranial nerves II through XII are grossly intact. Motor and sensory are also intact. Normal speech, volume and content. Symmetrical smile. MUSCULOSKELETAL: Normal extremities with adequate strength and full range of motion. LYMPHATICS: No significant lymphadenopathy is noted PSYCHIATRIC: Normal psychiatric evaluation. Limitations: no limitations Course Vital Signs 08/08/20 08/08/20 08/08/20 12:58 13:44 14:13 Temperature 98 F Pulse Rate 80 73 Respiratory 20 20 16 Rate Blood Pressure 131/89 O2 Sat by Pulse 98 Oximetry 08/08/20 08/08/20 14:20 15:42 Temperature 98.1 F Pulse Rate 77 81 Respiratory 18 16 Rate Blood Pressure 134/77 O2 Sat by Pulse 98 Oximetry Medical Decision Making - Medical Decision Making EKG shows normal sinus rhythm at 77 bpm VA interval 138 QRSs 80 QT interval is 356 QTC is 42. Patient's EKG shows no ST segment elevation or depression. Chest x-ray shows residual infiltrates in the bases consistent with pneumonia Patient received albuterol atropine and Solu-Medrol and she felt considerably better however she still did have some wheezing on examination. Patient will be discharged home on albuterol and steroid - Lab Data Result diagrams: 08/08/20 13:50 08/08/20 13:50 Lab Results 08/08/20 08/08/20 Range/Units 13:50 13:50 WBC 8.8 (3.8-10.6) k/uL RBC 5.11 (3.80-5.40) m/uL Hgb 15.5 (11.4-16.0) gm/dL Hct 44.9 (34.0-46.0) % MCV 87.8 (80.0-100.0) fL MCH 30.3 (25.0-35.0) pg MCHC 34.5 (31.0-37.0) g/dL RDW 12.7 (11.5-15.5) % Plt Count 223 (150-450) k/uL MPV 8.1 Neutrophils % 71 % Lymphocytes % 21 % Monocytes % 5 % Eosinophils % 2 % Basophils % 0 % Neutrophils # 6.2 (1.3-7.7) k/uL Lymphocytes # 1.8 (1.0-4.8) k/uL Monocytes # 0.5 (0-1.0) k/uL Eosinophils # 0.2 (0-0.7) k/uL Basophils # 0.0 (0-0.2) k/uL Sodium 141 (137-145) mmol/L Potassium 4.3 (3.5-5.1) mmol/L Chloride 108 H (98-107) mmol/L Carbon Dioxide 23 (22-30) mmol/L Anion Gap 10 mmol/L BUN 18 H (7-17) mg/dL Creatinine 0.71 (0.52-1.04) mg/dL Est GFR (CKD-EPI)AfAm >90 (>60 ml/min/1.73 sqM) Est GFR (CKD-EPI)NonAf >90 (>60 ml/min/1.73 sqM) Glucose 98 (74-99) mg/dL Calcium 9.6 (8.4-10.2) mg/dL Total Bilirubin 0.2 (0.2-1.3) mg/dL AST 49 H (14-36) U/L ALT 55 H (4-34) U/L Alkaline Phosphatase 82 (38-126) U/L Total Protein 7.2 (6.3-8.2) g/dL Albumin 4.6 (3.5-5.0) g/dL Disposition Clinical Impression: Pneumonia due to COVID-19 virus, Acute bronchospasm Disposition: HOME SELF-CARE Instructions (If sedation given, give patient instructions): Coronavirus Disease 2019 (COVID-19) Prescriptions: predniSONE [Deltasone] 40 mg PO DAILY #8 tab Albuterol Inhaler [Ventolin Hfa Inhaler] 2 puff INHALATION RT-QID #2 puff Is patient prescribed a controlled substance at d/c from ED?: No Referrals: Alan Talbot MD [Primary Care Provider] - 1-2 days Time of Disposition: 15:07
[2020-08-08 14:17] LABS: Basophils % (A) 0 %; Eosinophils # (A) 0.2 k/uL (0-0.7); Eosinophils % (A) 2 %; HCT 44.9 % (34.0-46.0); HGB 15.5 gm/dL (11.4-16.0); Lymphocytes # (A) 1.8 k/uL (1.0-4.8); Lymphocytes % (A) 21 %; MCH 30.3 pg (25.0-35.0); MCHC 34.5 g/dL (31.0-37.0); MCV 87.8 fL (80.0-100.0); Mean Platelet Volume 8.1; Monocytes # (A) 0.5 k/uL (0-1.0); Monocytes % (A) 5 %; Neutrophils # (A) 6.2 k/uL (1.3-7.7); Neutrophils % (A) 71 %; Platelet Count 223 k/uL (150-450); RBC 5.11 m/uL (3.80-5.40); RDW 12.7 % (11.5-15.5); WBC 8.8 k/uL (3.8-10.6)
[2020-08-08 14:18] LABS: ALT 55 U/L (4-34); AST 49 U/L (14-36); African American GFR (CKD) >90 (>60 ml/min/1.73 sqM); Albumin 4.6 g/dL (3.5-5.0); Alkaline Phosphatase 82 U/L (38-126); Anion Gap 10 mmol/L; Blood Urea Nitrogen 18 mg/dL (7-17); Calcium 9.6 mg/dL (8.4-10.2); Carbon Dioxide 23 mmol/L (22-30); Chloride 108 mmol/L (98-107); Glucose 98 mg/dL (74-99); Non-African American GFR(CKD) >90 (>60 ml/min/1.73 sqM); Potassium 4.3 mmol/L (3.5-5.1); Sodium 141 mmol/L (137-145); Total Bilirubin 0.2 mg/dL (0.2-1.3); Total Protein 7.2 g/dL (6.3-8.2)
--- NOTE | 2020-08-08 14:46 | XR ---
EXAMINATION TYPE: XR chest 2V DATE OF EXAM: 08/08/2020 COMPARISON: Chest x-ray January 19, 2014 HISTORY: Chest pain shortness of breath and cough. COVID positive in June. TECHNIQUE: Frontal and lateral views of the chest are obtained. FINDINGS: There are some faint areas of increased opacity bilaterally. No pleural effusion or pneumo thorax seen bilaterally. The cardiac silhouette size is within normal limits. The osseous structure s are intact. Cholecystectomy clips noted. IMPRESSION: Bilateral faint multifocal opacities consistent with resolving covid-19 infection suspec marilyn.
[2020-08-08 15:43] VITALS: BP 134/77; PULSE 81; RESP 16; TEMP 98.1
== END 2020-08-08 15:42 | disposition home or self-care (01) ==
LOC: EC 12:27
DX: U07.1 COVID-19 (principal); J12.82 Pneumonia due to coronavirus disease 2019; J98.01 Acute bronchospasm; F41.9 Anxiety disorder, unspecified; F32.9 Major depressive disorder, single episode, unspecified; Z87.891 Personal history of nicotine dependence; Z79.51 Long term (current) use of inhaled steroids
CPT/HCPCS: 36415; 71046; 80053; 85025; 93005; 94640; 96374; 99285

== ENCOUNTER 2021-06-17 08:33 | Emergency (ER) | payer OTHER ==
[2021-06-17 08:36] VITALS: RESP 18
[2021-06-17] MEDS ORDERED: SODIUM CHLORIDE 0.9% 2,000 ML IV STA (08:42)
[2021-06-17] MEDS ORDERED: ONDANSETRON 4 MG/2 ML VIAL IVP STA (08:42)
[2021-06-17] MEDS ORDERED: PANTOPRAZOLE 40 MG/10 ML VIAL IVP STA (08:59)
[2021-06-17 09:28] LABS: Basophils % (A) 0 %; Eosinophils # (A) 0.1 k/uL (0-0.7); Eosinophils % (A) 1 %; HCT 46.8 % (34.0-46.0); Lymphocytes # (A) 0.9 k/uL (1.0-4.8); Lymphocytes % (A) 7 %; MCH 30.9 pg (25.0-35.0); MCHC 34.1 g/dL (31.0-37.0); MCV 90.5 fL (80.0-100.0); Monocytes # (A) 0.4 k/uL (0-1.0); Monocytes % (A) 3 %; Neutrophils # (A) 11.4 k/uL (1.3-7.7); Neutrophils % (A) 88 %; Platelet Count 273 k/uL (150-450); RBC 5.17 m/uL (3.80-5.40); RDW 13.1 % (11.5-15.5); WBC 12.9 k/uL (3.8-10.6)
[2021-06-17 09:30] LABS: ALT 22 U/L (4-34); African American GFR (CKD) >90 (>60 ml/min/1.73 sqM); Amylase 78 U/L (30-110); Anion Gap 10 mmol/L; Blood Urea Nitrogen 14 mg/dL (7-17); Calcium 8.6 mg/dL (8.4-10.2); Carbon Dioxide 22 mmol/L (22-30); Chloride 106 mmol/L (98-107); Glucose 109 mg/dL (74-99); Lipase 107 U/L (23-300); Non-African American GFR(CKD) >90 (>60 ml/min/1.73 sqM); Sodium 138 mmol/L (137-145); Total Bilirubin 0.9 mg/dL (0.2-1.3)
--- NOTE | 2021-06-17 09:39 | ED ---
Abdominal Pain HPI - General Chief Complaint: Abdominal Pain Stated Complaint: Vomiting, Abd pain Time Seen by Provider: 06/17/21 08:36 Source: patient, RN notes reviewed Mode of arrival: ambulatory Limitations: no limitations - History of Present Illness Initial Comments: This 41-year-old female presents emergency Department with chief complaint of abdominal pain, nausea vomiting. She does she noticed some blood in her stool and emesis. Patient states that she chose domperidone 3 AM with severe. She's had a prior appendectomy, cholecystectomy and tubal ligation. Denies any chance no dysuria. She believes that she does not have some underlying systemic issue. She does not she has IBS. Patient denies any fevers or chills no chest pain or shortness breath. - Related Data Home Medications Medication Instructions Recorded Confirmed Multivitamins, Thera [Multivitamin 1 tab PO DAILY 08/08/20 08/08/20 (formulary)] Previous Rx's Medication Instructions Recorded Albuterol Inhaler [Ventolin Hfa 2 puff INHALATION RT-QID #2 puff 08/08/20 Inhaler] predniSONE [Deltasone] 40 mg PO DAILY #8 tab 08/08/20 Omeprazole [PriLOSEC] 40 mg PO DAILY #14 cap 06/17/21 Ondansetron Odt [Zofran Odt] 4 mg PO Q8HR PRN #10 tab 06/17/21 Allergies Allergy/AdvReac Type Severity Reaction Status Date / Time hydromorphone [From Dilaudid] Allergy Swelling Verified 06/17/21 08:34 Review of Systems ROS Statement: Those systems with pertinent positive or pertinent negative responses have been documented in the HPI. ROS Other: All systems not noted in ROS Statement are negative. Past Medical History Past Medical History: No Reported History Additional Past Medical History / Comment(s): migraines, covid in june 2020 History of Any Multi-Drug Resistant Organisms: None Reported Past Surgical History: Appendectomy, Cholecystectomy, Tubal Ligation Past Anesthesia/Blood Transfusion Reactions: No Reported Reaction Past Psychological History: Anxiety, Depression Smoking Status: Current every day smoker Past Alcohol Use History: None Reported Past Drug Use History: None Reported - Past Family History Sister(s) Family Medical History: Cancer General Exam Limitations: no limitations General appearance: alert, in no apparent distress Head exam: Present: atraumatic, normocephalic, normal inspection Eye exam: Present: normal appearance, PERRL, EOMI. Absent: scleral icterus, conjunctival injection, periorbital swelling ENT exam: Present: normal exam, mucous membranes moist Neck exam: Present: normal inspection. Absent: tenderness, meningismus, lymphadenopathy Respiratory exam: Present: normal lung sounds bilaterally. Absent: respiratory distress, wheezes, rales, rhonchi, stridor Cardiovascular Exam: Present: regular rate, normal rhythm, normal heart sounds. Absent: systolic murmur, diastolic murmur, rubs, gallop, clicks GI/Abdominal exam: Present: soft, tenderness, normal bowel sounds. Absent: distended, guarding, rebound, rigid Back exam: Absent: CVA tenderness (R), CVA tenderness (L) Neurological exam: Present: alert, oriented X3 Skin exam: Present: warm, dry, intact, normal color. Absent: rash Course Vital Signs 06/17/21 08:34 Temperature 97.5 F L Pulse Rate 97 Respiratory 18 Rate Blood Pressure 159/103 O2 Sat by Pulse 99 Oximetry Medical Decision Making - Medical Decision Making 41-year-old female presented for abdominal pain. Patient's labs CT reviewed no specific findings to the question headache area patient will follow palpation. Patient has no active bleeding will be discharged in stable condition most likely for a benign gastric enteritis. - Lab Data Result diagrams: 06/17/21 09:00 06/17/21 09:00 Lab Results 06/17/21 06/17/21 06/17/21 Range/Units 09:00 09:00 09:00 WBC 12.9 H (3.8-10.6) k/uL RBC 5.17 (3.80-5.40) m/uL Hgb 16.0 (11.4-16.0) gm/dL Hct 46.8 H (34.0-46.0) % MCV 90.5 (80.0-100.0) fL MCH 30.9 (25.0-35.0) pg MCHC 34.1 (31.0-37.0) g/dL RDW 13.1 (11.5-15.5) % Plt Count 273 (150-450) k/uL MPV 8.0 Neutrophils % 88 % Lymphocytes % 7 % Monocytes % 3 % Eosinophils % 1 % Basophils % 0 % Neutrophils # 11.4 H (1.3-7.7) k/uL Lymphocytes # 0.9 L (1.0-4.8) k/uL Monocytes # 0.4 (0-1.0) k/uL Eosinophils # 0.1 (0-0.7) k/uL Basophils # 0.0 (0-0.2) k/uL Sodium 138 (137-145) mmol/L Potassium 4.7 (3.5-5.1) mmol/L Chloride 106 (98-107) mmol/L Carbon Dioxide 22 (22-30) mmol/L Anion Gap 10 mmol/L BUN 14 (7-17) mg/dL Creatinine 0.74 (0.52-1.04) mg/dL Est GFR (CKD-EPI)AfAm >90 (>60 ml/min/1.73 sqM) Est GFR (CKD-EPI)NonAf >90 (>60 ml/min/1.73 sqM) Glucose 109 H (74-99) mg/dL Calcium 8.6 (8.4-10.2) mg/dL Total Bilirubin 0.9 (0.2-1.3) mg/dL AST 27 (14-36) U/L ALT 22 (4-34) U/L Alkaline Phosphatase 65 (38-126) U/L Total Protein 7.4 (6.3-8.2) g/dL Albumin 4.4 (3.5-5.0) g/dL Amylase 78 (30-110) U/L Lipase 107 (23-300) U/L Urine Color Light Yellow Urine Appearance Clear (Clear) Urine pH 6.5 (5.0-8.0) Ur Specific [place] 1.011 (1.001-1.035) Urine Protein Negative (Negative) Urine Glucose (UA) Negative (Negative) Urine Ketones Negative (Negative) Urine Blood Small H (Negative) Urine Nitrite Negative (Negative) Urine Bilirubin Negative (Negative) Urine Urobilinogen <2.0 (<2.0) mg/dL Ur Leukocyte Esterase Negative (Negative) Urine RBC 4 (0-5) /hpf Urine WBC 1 (0-5) /hpf Ur Squamous Epith Cells 3 (0-4) /hpf Urine HCG, Qual (Not Detectd) 06/17/21 Range/Units 09:00 WBC (3.8-10.6) k/uL RBC (3.80-5.40) m/uL Hgb (11.4-16.0) gm/dL Hct (34.0-46.0) % MCV (80.0-100.0) fL MCH (25.0-35.0) pg MCHC (31.0-37.0) g/dL RDW (11.5-15.5) % Plt Count (150-450) k/uL MPV Neutrophils % % Lymphocytes % % Monocytes % % Eosinophils % % Basophils % % Neutrophils # (1.3-7.7) k/uL Lymphocytes # (1.0-4.8) k/uL Monocytes # (0-1.0) k/uL Eosinophils # (0-0.7) k/uL Basophils # (0-0.2) k/uL Sodium (137-145) mmol/L Potassium (3.5-5.1) mmol/L Chloride (98-107) mmol/L Carbon Dioxide (22-30) mmol/L Anion Gap mmol/L BUN (7-17) mg/dL Creatinine (0.52-1.04) mg/dL Est GFR (CKD-EPI)AfAm (>60 ml/min/1.73 sqM) Est GFR (CKD-EPI)NonAf (>60 ml/min/1.73 sqM) Glucose (74-99) mg/dL Calcium (8.4-10.2) mg/dL Total Bilirubin (0.2-1.3) mg/dL AST (14-36) U/L ALT (4-34) U/L Alkaline Phosphatase (38-126) U/L Total Protein (6.3-8.2) g/dL Albumin (3.5-5.0) g/dL Amylase (30-110) U/L Lipase (23-300) U/L Urine Color Urine Appearance (Clear) Urine pH (5.0-8.0) Ur Specific [place] (1.001-1.035) Urine Protein (Negative) Urine Glucose (UA) (Negative) Urine Ketones (Negative) Urine Blood (Negative) Urine Nitrite (Negative) Urine Bilirubin (Negative) Urine Urobilinogen (<2.0) mg/dL Ur Leukocyte Esterase (Negative) Urine RBC (0-5) /hpf Urine WBC (0-5) /hpf Ur Squamous Epith Cells (0-4) /hpf Urine HCG, Qual Not Detected (Not Detectd) Disposition Clinical Impression: Gastroenteritis Disposition: HOME SELF-CARE Condition: Stable Instructions (If sedation given, give patient instructions): Gastroenteritis (ED) Additional Instructions: Please return to the Emergency Department if symptoms worsen or any other concerns. Prescriptions: Omeprazole [PriLOSEC] 40 mg PO DAILY #14 cap Ondansetron Odt [Zofran Odt] 4 mg PO Q8HR PRN #10 tab PRN Reason: Nausea Is patient prescribed a controlled substance at d/c from ED?: No Referrals: Alan Talbot MD [Primary Care Provider] - 1-2 days Time of Disposition: 10:46
[2021-06-17 09:41] LABS: Appearance,Urine Clear (Clear); Bilirubin,Urine Negative (Negative); Blood,Urine Small (Negative); Color,Urine Light Yellow; Glucose,Urine (UA) Negative (Negative); Ketones,Urine Negative (Negative); Leukocyte Esterase,Urine Negative (Negative); Nitrite,Urine Negative (Negative); PH, Urine 6.5 (5.0-8.0); Protein,Urine Negative (Negative); RBC,Urine 4 /hpf (0-5); Specific Gravity,Urine 1.011 (1.001-1.035); Squamous Epithelial Cell,Urine 3 /hpf (0-4); Urobilinogen,Urine <2.0 mg/dL (<2.0); WBC,Urine 1 /hpf (0-5)
[2021-06-17 09:46] LABS: AST 27 U/L (14-36); Albumin 4.4 g/dL (3.5-5.0); Alkaline Phosphatase 65 U/L (38-126); Potassium 4.7 mmol/L (3.5-5.1); Total Protein 7.4 g/dL (6.3-8.2)
--- NOTE | 2021-06-17 10:21 | CT ---
EXAMINATION TYPE: CT abdomen pelvis w con DATE OF EXAM: 06/17/2021 COMPARISON: No previous CT scan is available for comparison. HISTORY: Abdominal pain, vomiting CT DLP: 1532.3 mGycm Automated exposure control for dose reduction was used. TECHNIQUE: Helical acquisition of images was performed from the lung bases through the pelvis. CONTRAST: Performed without Oral Contrast and with IV Contrast, patient injected with 100 mL of Isovue 300. FINDINGS: LUNG BASES: No significant abnormality is appreciated. LIVER/GB: Previous cholecystectomy. Indeterminate 7 mm hypodensity in segment 7 of the liver, appreci ated in the venous phase and not appreciated in the delayed images which could represent a hepatic he mangioma. Further targeted ultrasound assessment should be considered. If nonconclusive, further MRI should be considered. No other definite hepatic focal lesion identified. PANCREAS: No significant abnormality is seen. SPLEEN: No significant abnormality is seen. ADRENALS: No significant abnormality is seen. KIDNEYS: No significant abnormality is seen. FREE AIR: No free air is visualized. RETROPERITONEAL ADENOPATHY: None visualized REPRODUCTIVE ORGANS: The endometrium measures 13 mm which could be normal for the patient's age. No g ross uterine or adnexal mass. URINARY BLADDER: Unremarkable. PELVIC ADENOPATHY: No pathologically enlarged lymph nodes. OSSEOUS STRUCTURES: No aggressive bone lesion. BOWEL: Grossly unremarkable nondistended stomach, duodenum and small bowel with no evidence of bowel obstruction. No gross colonic abnormality. OTHER: Unremarkable abdominal aorta and IVC. Suspected subtle pelvic adhesions, endometriosis cannot be excluded. No sizable ascites. IMPRESSION: No definite acute abnormality seen in the abdomen or the pelvis. Indeterminate right hepatic lobe seg ment 7 hypodensity as detailed above, for further targeted ultrasound assessment. Other incidental fi ndings as described above.
[2021-06-17] MEDS ORDERED: METOCLOPRAMIDE 5 MG/ML 2 ML VIAL IVP STA (10:53)
[2021-06-17] MEDS ORDERED: diphenhydrAMINE 50 MG/ML 1 ML VIAL IVP STA (10:53)
[2021-06-17 11:46] VITALS: BP 134/84; PULSE 87; TEMP 98.6
== END 2021-06-17 11:52 | disposition home or self-care (01) ==
LOC: EC 08:33
DX: K52.9 Noninfective gastroenteritis and colitis, unspecified (principal); F41.9 Anxiety disorder, unspecified; F32.A Depression, unspecified; F17.200 Nicotine dependence, unspecified, uncomplicated; Z88.5 Allergy status to narcotic agent; Z90.49 Acquired absence of other specified parts of digestive tract; Z98.51 Tubal ligation status
CPT/HCPCS: 99284; 96374; 96375 ×3; 96361 ×2; 36415; 80053; 82150; 83690; 85025; 81001; 81025; 74177; J1200; J2765; J2405; C9113; Q9967

== ENCOUNTER 2022-03-26 14:45 | Emergency (ER) | payer OTHER ==
[2022-03-26] MEDS ORDERED: KETOROLAC 15 MG/ML 1 ML VIAL IVP STA (15:22)
[2022-03-26] MEDS ORDERED: SODIUM CHLORIDE 0.9% 1,000 ML IV STA (15:22)
[2022-03-26 15:42] LABS: Basophils % (A) 0 %; Eosinophils # (A) 0.2 k/uL (0-0.7); Eosinophils % (A) 3 %; HCT 42.6 % (34.0-46.0); HGB 14.5 gm/dL (11.4-16.0); Lymphocytes # (A) 2.3 k/uL (1.0-4.8); Lymphocytes % (A) 25 %; MCH 30.3 pg (25.0-35.0); MCV 89.2 fL (80.0-100.0); Mean Platelet Volume 8.1; Monocytes # (A) 0.4 k/uL (0-1.0); Monocytes % (A) 4 %; Neutrophils % (A) 66 %; Platelet Count 234 k/uL (150-450); RBC 4.78 m/uL (3.80-5.40); RDW 13.3 % (11.5-15.5); WBC 9.1 k/uL (3.8-10.6)
[2022-03-26 15:51] LABS: ALT 23 U/L (4-34); AST 22 U/L (14-36); African American GFR (CKD) >90 (>60 ml/min/1.73 sqM); Albumin 4.3 g/dL (3.5-5.0); Alkaline Phosphatase 72 U/L (38-126); Anion Gap 8 mmol/L; Blood Urea Nitrogen 18 mg/dL (7-17); Calcium 8.9 mg/dL (8.4-10.2); Carbon Dioxide 27 mmol/L (22-30); Chloride 107 mmol/L (98-107); Glucose 91 mg/dL (74-99); Lipase 68 U/L (23-300); Non-African American GFR(CKD) >90 (>60 ml/min/1.73 sqM); Potassium 3.9 mmol/L (3.5-5.1); Sodium 142 mmol/L (137-145); Total Bilirubin 0.3 mg/dL (0.2-1.3)
[2022-03-26] MEDS ORDERED: hydrOXYzine HCL 25 MG TAB PO STA (16:04)
[2022-03-26] MEDS ORDERED: MORPHINE SULFATE 4 MG/ML SYRINGE IVP STA (16:04)
[2022-03-26 16:06] LABS: Appearance,Urine Clear (Clear); Bilirubin,Urine Negative (Negative); Blood,Urine Small (Negative); Color,Urine Yellow; Glucose,Urine (UA) Negative (Negative); Ketones,Urine Negative (Negative); Leukocyte Esterase,Urine Negative (Negative); Mucus,Urine Rare /hpf; Nitrite,Urine Negative (Negative); Protein,Urine Negative (Negative); RBC,Urine 10 /hpf (0-5); Specific Gravity,Urine 1.022 (1.001-1.035); Squamous Epithelial Cell,Urine 1 /hpf (0-4); Urobilinogen,Urine <2.0 mg/dL (<2.0); WBC,Urine 2 /hpf (0-5)
--- NOTE | 2022-03-26 16:52 | CT ---
EXAMINATION TYPE: CT abdomen pelvis w con DATE OF EXAM: 03/26/2022 COMPARISON: 06/17/2021 HISTORY: c/o rectal pain CT DLP: 1472.1 mGycm Automated exposure control for dose reduction was used. CONTRAST: Performed with IV Contrast, patient injected with 100 mL of Isovue 300. Images obtained from the diaphragm to the floor the pelvis with the IV contrast. The lung bases are clear. No pleural effusion. Heart size is normal. No pericardial effusion. There a re small hiatal hernia. There are clips from cholecystectomy. Liver spleen and stomach pancreas appea r intact. The bowel is not dilated. There is no adrenal mass. Kidneys show satisfactory contrast opacification. No hydronephrosis. There are appendicoliths in an appendectomy. There is no retroperitoneal adenopathy. Delayed images show no rmal renal excretion the bladder distends smoothly. Uterus is anteverted. No inguinal hernia. No free fluid in the pelvis. No pelvic mass. Lumbar vertebrae have normal spacing and alignment. Posterior elements are intact. No compression fra cture. The bony pelvis is intact. Hip joints are intact. There is no mesenteric edema. No ascites or free air. No sign of a bowel obstruction. No evidence of rectal mass. No intestinal wall thickening. IMPRESSION: Negative CT scan of the abdomen pelvis. No change compared to old exam. I do not see a cause for rect al pain.
[2022-03-26] MEDS ORDERED: GABAPENTIN 300 MG CAP PO STA (17:20)
--- NOTE | 2022-03-26 17:30 | ED ---
General Adult HPI - General Chief complaint: Skin/Abscess/Foreign Body Stated complaint: Rash on Leg Time Seen by Provider: 03/26/22 14:56 Source: patient Mode of arrival: ambulatory Limitations: no limitations - History of Present Illness Initial comments: Patient is a 42-year-old female who presents with multiple complaints. Her main complaint is rectal pain. Pain started 5 days ago. Patient states it feels different than a typical hemorrhoid pain as pain is not in her external hemorrhoid region but instead in her right medial gluteal cleft. She denies injury. Describes pain as a consistent shooting which has been debilitating. States she has spent a time of money and [id number] external hemorrhoid treatment including Preparation H with no relief. She denies abdominal pain, nausea, vomiting, diarrhea. Reports intermittent red streaks of blood in her stool. She had a colonoscopy 3 years ago due to family history of colon cancer which she states showed hemorrhoids however patient does not know if they were internal or external. Patient also complains of rash. It started 2 weeks ago in her left leg and has moved to her right and to the back of her neck. It is itchy and painful. Patient putting high-dose hydrocortisone cream on it with some improvement of symptoms. She called her primary care provider regarding pain and rash who told her to come to the emergency department. - Related Data Home Medications Medication Instructions Recorded Confirmed Multivitamins, Thera [Multivitamin 1 tab PO DAILY 08/08/20 08/08/20 (formulary)] Previous Rx's Medication Instructions Recorded Albuterol Inhaler [Ventolin Hfa 2 puff INHALATION RT-QID #2 puff 08/08/20 Inhaler] predniSONE [Deltasone] 40 mg PO DAILY #8 tab 08/08/20 Omeprazole [PriLOSEC] 40 mg PO DAILY #14 cap 06/17/21 Ondansetron Odt [Zofran Odt] 4 mg PO Q8HR PRN #10 tab 06/17/21 Gabapentin [Neurontin] 300 mg PO TID #9 cap 03/26/22 hydrOXYzine HCL [Atarax] 25 mg PO BID #14 tab 03/26/22 Allergies Allergy/AdvReac Type Severity Reaction Status Date / Time hydromorphone [From Dilaudid] Allergy Swelling Verified 03/26/22 14:50 Review of Systems ROS Statement: Those systems with pertinent positive or pertinent negative responses have been documented in the HPI. ROS Other: All systems not noted in ROS Statement are negative. Past Medical History Past Medical History: No Reported History Additional Past Medical History / Comment(s): migraines, covid in june 2020 History of Any Multi-Drug Resistant Organisms: None Reported Past Surgical History: Appendectomy, Cholecystectomy, Tubal Ligation Past Anesthesia/Blood Transfusion Reactions: No Reported Reaction Past Psychological History: Anxiety, Depression Smoking Status: Current every day smoker Past Alcohol Use History: None Reported Past Drug Use History: None Reported - Past Family History Sister(s) Family Medical History: Cancer General Exam Limitations: no limitations General appearance: alert Head exam: Present: atraumatic, normocephalic, normal inspection Eye exam: Present: normal appearance, PERRL, EOMI. Absent: scleral icterus, conjunctival injection, periorbital swelling Respiratory exam: Present: normal lung sounds bilaterally. Absent: respiratory distress, wheezes, rales, rhonchi, stridor Cardiovascular Exam: Present: regular rate, normal rhythm, normal heart sounds. Absent: systolic murmur, diastolic murmur, rubs, gallop, clicks GI/Abdominal exam: Present: soft, normal bowel sounds. Absent: distended, tenderness, guarding, rebound, rigid Rectal exam: Present: hemorrhoids (internal palpated-very tender on palpation. external nontender). Absent: heme (+) stool, bloody stool Neurological exam: Present: alert, oriented X3, CN II-XII intact Psychiatric exam: Present: normal affect, normal mood Skin exam: Present: rash (dry, erythematous patchy dermatitis over the distal left anterior leg just above ankle and right anterior leg just below knee. to a lesser extent, the posterior neck. No blanching, warmth, or tenderness to palpation ) Course Vital Signs 03/26/22 03/26/22 14:46 17:36 Temperature 97.2 F L 98 F Pulse Rate 95 66 Respiratory 20 18 Rate Blood Pressure 141/81 121/73 O2 Sat by Pulse 96 99 Oximetry Medical Decision Making - Medical Decision Making Was pt. sent in by a medical professional or institution (, PA, STRATEGIC ACCOUNT EXECUTIVE, urgent care, hospital, or custodial...) When possible be specific @ -[No] Did you speak to anyone other than the patient for history (EMS, parent, family, police, friend...)? What history was obtained from this source @ -[No] Did you review nursing and triage notes (agree or disagree)? Why? @ -[I reviewed and agree with nursing and triage notes] Were old charts reviewed (outside hosp., previous admission, EMS record, old EKG, old radiological studies, urgent care reports/EKG's, custodial records)? Report findings @ -[No old charts were reviewed] Differential Diagnosis (chest pain, altered mental status, abdominal pain women, abdominal pain men, vaginal bleeding, weakness, fever, dyspnea, syncope, headache, dizziness, GI bleed, back pain, seizure, CVA, palpatations, mental health)? @ -hemorrhoids, fissure, stool impaction EKG interpreted by me (3pts min.). @ -[As above] X-rays interpreted by me (1pt min.). @ -[None done] CT interpreted by me (1pt min.). @ -Yes, CT of the abdomen and pelvis with contrast shows no acute process U/S interpreted by me (1pt. min.). @ -[None done] What testing was considered but not performed or refused? (CT, X-rays, U/S, labs)? Why? @ -[None] What meds were considered but not given or refused? Why? @ -[None] Did you discuss the management of the patient with other professionals (professionals i.e. , PA, STRATEGIC ACCOUNT EXECUTIVE, lab, RT, psych nurse, social insurance adviser, manager food, teacher, quarantine officer, case management social worker)? Give summary @ -[No] Was smoking cessation discussed for >3mins.? @ -[No] Was critical care preformed (if so, how long)? @ -[No] Were there social determinants of health that impacted care today? How? (Homelessness, low income, unemployed, alcoholism, drug addiction, transportation, low edu. Level, literacy, decrease access to med. care, custodial, rehab)? @ -[No] Was there de-escalation of care discussed even if they declined (Discuss DNR or withdrawal of care, Hospice)? DNR status @ -[No] What co-morbidities impacted this encounter? (DM, HTN, Smoking, COPD, CAD, Ca ncer, CVA, ARF, Chemo, Hep., AIDS, mental health diagnosis, sleep apnea, morbid obesity)? @ -[None] Was patient admitted / discharged? Hospital course, mention meds given and route, prescriptions, significant lab abnormalities, going to OR and other pertinent info. @ -This is a 42-year-old presenting with rectal pain and rash. Patient does have external hemorrhoids which are non thrombosed and non-tender with palpation. Probable internal hemorrhoid palpated which caused significant pain. Laboratory studies obtained and are relatively unremarkable. Stool occult Is negative. CT abdomen and pelvis with contrast is negative for acute process, no obvious cause for rectal pain. She was given Toradol with no relief. She was then given morphine and did not have any relief of pain. Case discussed in detail with patient. Patient will need to follow up with GI specialist for scope. With shooting type pain I will prescribe her a short course of gabapentin to trial. Patient has nonspecific dermatitis which she is already using high-dose cortisone on. Patient prescribed hydroxyzine and will continue using cream. She is referred to mushroom sorter grader. Undiagnosed new problem with uncertain prognosis? @ -[No] Drug Therapy requiring intensive monitoring for toxicity (Heparin, Nitro, Insulin, Cardizem)? @ -[No] Were any procedures done? @ -[No] Diagnosis/symptom? @ -rectal pain Acute, or Chronic, or Acute on Chronic? @ -acute Uncomplicated (without systemic symptoms) or Complicated (systemic symptoms)? @ -uncomplicated Side effects of treatment? @ -[No] Exacerbation, Progression, or Severe Exacerbation? @ -[No] Poses a threat to life or bodily function? How? (Chest pain, [place], [place], pneumonia, PE, COPD, DKA, ARF, appy, cholecystitis, CVA, Diverticulitis, Homicidal, Suicidal, threat to staff... and all critical care pts) @ -[No] Dr. Ortiz is my attending. - Lab Data Result diagrams: 03/26/22 15:37 03/26/22 15:37 Lab Results 03/26/22 03/26/22 03/26/22 Range/Units 15:25 15:37 15:37 WBC 9.1 (3.8-10.6) k/uL RBC 4.78 (3.80-5.40) m/uL Hgb 14.5 (11.4-16.0) gm/dL Hct 42.6 (34.0-46.0) % MCV 89.2 (80.0-100.0) fL MCH 30.3 (25.0-35.0) pg MCHC 34.0 (31.0-37.0) g/dL RDW 13.3 (11.5-15.5) % Plt Count 234 (150-450) k/uL MPV 8.1 Neutrophils % 66 % Lymphocytes % 25 % Monocytes % 4 % Eosinophils % 3 % Basophils % 0 % Neutrophils # 6.0 (1.3-7.7) k/uL Lymphocytes # 2.3 (1.0-4.8) k/uL Monocytes # 0.4 (0-1.0) k/uL Eosinophils # 0.2 (0-0.7) k/uL Basophils # 0.0 (0-0.2) k/uL Sodium 142 (137-145) mmol/L Potassium 3.9 (3.5-5.1) mmol/L Chloride 107 (98-107) mmol/L Carbon Dioxide 27 (22-30) mmol/L Anion Gap 8 mmol/L BUN 18 H (7-17) mg/dL Creatinine 0.76 (0.52-1.04) mg/dL Est GFR (CKD-EPI)AfAm >90 (>60 ml/min/1.73 sqM) Est GFR (CKD-EPI)NonAf >90 (>60 ml/min/1.73 sqM) Glucose 91 (74-99) mg/dL Calcium 8.9 (8.4-10.2) mg/dL Total Bilirubin 0.3 (0.2-1.3) mg/dL AST 22 (14-36) U/L ALT 23 (4-34) U/L Alkaline Phosphatase 72 (38-126) U/L Total Protein 7.0 (6.3-8.2) g/dL Albumin 4.3 (3.5-5.0) g/dL Lipase 68 (23-300) U/L Urine Color Urine Appearance (Clear) Urine pH (5.0-8.0) Ur Specific [place] (1.001-1.035) Urine Protein (Negative) Urine Glucose (UA) (Negative) Urine Ketones (Negative) Urine Blood (Negative) Urine Nitrite (Negative) Urine Bilirubin (Negative) Urine Urobilinogen (<2.0) mg/dL Ur Leukocyte Esterase (Negative) Urine RBC (0-5) /hpf Urine WBC (0-5) /hpf Ur Squamous Epith Cells (0-4) /hpf Urine Mucus (None) /hpf Stool Occult Blood Negative (Negative) 03/26/22 Range/Units 15:48 WBC (3.8-10.6) k/uL RBC (3.80-5.40) m/uL Hgb (11.4-16.0) gm/dL Hct (34.0-46.0) % MCV (80.0-100.0) fL MCH (25.0-35.0) pg MCHC (31.0-37.0) g/dL RDW (11.5-15.5) % Plt Count (150-450) k/uL MPV Neutrophils % % Lymphocytes % % Monocytes % % Eosinophils % % Basophils % % Neutrophils # (1.3-7.7) k/uL Lymphocytes # (1.0-4.8) k/uL Monocytes # (0-1.0) k/uL Eosinophils # (0-0.7) k/uL Basophils # (0-0.2) k/uL Sodium (137-145) mmol/L Potassium (3.5-5.1) mmol/L Chloride (98-107) mmol/L Carbon Dioxide (22-30) mmol/L Anion Gap mmol/L BUN (7-17) mg/dL Creatinine (0.52-1.04) mg/dL Est GFR (CKD-EPI)AfAm (>60 ml/min/1.73 sqM) Est GFR (CKD-EPI)NonAf (>60 ml/min/1.73 sqM) Glucose (74-99) mg/dL Calcium (8.4-10.2) mg/dL Total Bilirubin (0.2-1.3) mg/dL AST (14-36) U/L ALT (4-34) U/L Alkaline Phosphatase (38-126) U/L Total Protein (6.3-8.2) g/dL Albumin (3.5-5.0) g/dL Lipase (23-300) U/L Urine Color Yellow Urine Appearance Clear (Clear) Urine pH 6.0 (5.0-8.0) Ur Specific [place] 1.022 (1.001-1.035) Urine Protein Negative (Negative) Urine Glucose (UA) Negative (Negative) Urine Ketones Negative (Negative) Urine Blood Small H (Negative) Urine Nitrite Negative (Negative) Urine Bilirubin Negative (Negative) Urine Urobilinogen <2.0 (<2.0) mg/dL Ur Leukocyte Esterase Negative (Negative) Urine RBC 10 H (0-5) /hpf Urine WBC 2 (0-5) /hpf Ur Squamous Epith Cells 1 (0-4) /hpf Urine Mucus Rare H (None) /hpf Stool Occult Blood (Negative) Disposition Clinical Impression: Rectal pain, Dermatitis Disposition: HOME SELF-CARE Condition: Good Instructions (If sedation given, give patient instructions): Acute Rash (ED), Rectal Pain (ED) Additional Instructions: Take medication as directed. Follow-up with GI specialist and primary care provider regarding rectal pain. Please follow-up with mushroom sorter grader for rash. Return to the emergency department if you experience new, concerning, or worseni ng symptoms. Prescriptions: hydrOXYzine HCL [Atarax] 25 mg PO BID #14 tab Gabapentin [Neurontin] 300 mg PO TID #9 cap Is patient prescribed a controlled substance at d/c from ED?: Yes If prescribed controlled substance>3 days was MAPS reviewed?: Prescribed <3 Days Referrals: Alan Talbot MD [Primary Care Provider] - 1-2 days Ever Woodard MD [STAFF PHYSICIAN] - 1-2 days Paige Trinh MD [STAFF PHYSICIAN] - 1-2 days Time of Disposition: 17:30
[2022-03-26 17:36] VITALS: BP 121/73; PULSE 66; RESP 18; TEMP 98
== END 2022-03-26 17:36 | disposition home or self-care (01) ==
LOC: EC 14:45
DX: K62.89 Other specified diseases of anus and rectum (principal); L30.9 Dermatitis, unspecified; F41.9 Anxiety disorder, unspecified; F32.A Depression, unspecified; F17.200 Nicotine dependence, unspecified, uncomplicated; Z79.52 Long term (current) use of systemic steroids; Z79.899 Other long term (current) drug therapy; Z88.5 Allergy status to narcotic agent
CPT/HCPCS: 36415; 80053; 83690; 85025; 82272; 81001; 74177; 99284; 96374; 96375; 96361; J2270; J1885; Q9967